=== PATIENT | female | born 1975 | race Caucasian/White ===

== ENCOUNTER → 2016-07-10 | Outpatient (CLI) | payer BC ==
--- NOTE | 2016-07-10 16:21 | MR ---
EXAMINATION TYPE: MR brain wo/w con DATE OF EXAM: 07/10/2016 3:42 PM COMPARISON: Prior MRI brain July 10, 2015. HISTORY: Follow up ms . Symptoms of left-sided weakness per patient questionnaire. TECHNIQUE: Multiplanar, multisequence images of the brain and brainstem is performed without and with IV contras t, utilizing 10 mL intravenous MultiHance gadolinium contrast is administered intravenously. Demyeli nating disease protocol with additional Sagittal Flair sequence performed. FINDINGS: T2 Lesions Present : Yes Approximate Number of Lesions: Too numerous to count with confluent appearance redemonstrated. Locations Identified : Most prominent periventricular white juxtacortical lesions are redemonstrated, lesion craniocervical junction is redemonstrated. Size of Reference Lesion(s): 1. 0.5 cm x 0.3 cm x 0.6 cm on axial image 2 and sagittal image 16 slightly less well visualized but felt stable in size extending just left of midline at craniocervical junction. 2 0.9 cm x 0.5 cm x 0.6 cm on axial image 20 and sagittal image 9 left frontal deep white matter le mian felt stable. Enhancing Lesion(s) Present: No T1 Hypointense Lesion(s) Present: Yes Change from Prior: Stable Diffusion weighted images demonstrate no evidence of a recent infarct or other diffusion abnormality. There is no worrisome extra-axial fluid collection. The ventricular system and cisternal spaces ar e normal in size and appearance. The brain volume is age appropriate. Midline structures demonstrate normal morphology. Some generalized atrophy or thinning of the corpus callosum is redemonstrated on sagittal images. The craniocervical junction appears within normal sands its. Post contrast images demonstrate no abnormal enhancement. The dural venous sinuses appear paten t. There is stable 1 cm mucous retention cyst or polyp in inferior left maxillary sinus noted. The v isualized sinuses are otherwise clear and the globes are intact. IMPRESSION: Advanced white matter changes presumed on basis of patient's known multiple sclerosis. No new or enhancing lesions are clearly seen.
== END | disposition home or self-care (01) ==
LOC: RADMRIMAIN 14:37
PROVIDERS: ATTEND Nurse Practitioner Acute Care
DX: G35 Multiple sclerosis (principal); M54.2 Cervicalgia
CPT/HCPCS: 70553; A9577

== ENCOUNTER → 2016-07-19 | Outpatient (CLI) | payer BC ==
--- NOTE | 2016-07-19 12:40 | MR ---
EXAMINATION TYPE: MR cervical spine wo con DATE OF EXAM ORDERED: 07/19/2016 12:27 PM HISTORY: M54.2 Cervicalgia. TECHNOLOGIST HISTORY AT TIME OF EXAM: Cervicalgia, MS COMPARISON: Previous study dated 11/19/2013. TECHNIQUE: Multiplanar, multiecho imaging of the cervical spine was obtained without contrast on a 1 .5 rosalino magnet. FINDINGS: Paraspinal soft tissues are unremarkable. Vertebral body height and alignment are maintained. There is a questionable lesion at the cervical medullary junction noted previously measured 10.6 mm. Today this measures 9.5 mm. The craniocervical junction is otherwise normal. No other cord lesions ar e seen. At C2-C3, no abnormalities demonstrated. At C3-C4, there is a mild, diffuse disc displacement. Intervertebral foramina are well maintained. Th e facet and uncovertebral joints are normal. At C4-C5, the intervertebral foramina are unremarkable. There is no significant compressive discopath y. The facet and uncovertebral joints are normal. At C5-C6, there is a broad-based disc displacement mildly deforming the thecal sac without cord conta ct. The intervertebral foramina are widely maintained. The facet and uncovertebral joints are normal. At C6-7 and C7-T1, no abnormality is demonstrated. IMPRESSION: 1. QUESTIONABLE LESION AT THE CERVICAL MEDULLARY JUNCTION UNCHANGED FROM PREVIOUS. 2. MINIMAL DEGENERATIVE DISC DISEASE.
== END | disposition home or self-care (01) ==
LOC: RADMRIMAIN 11:48
PROVIDERS: ATTEND Nurse Practitioner Acute Care
DX: G35 Multiple sclerosis (principal); M50.222 Other cervical disc displacement at C5-C6 level; M50.31 Other cervical disc degeneration, high cervical region
CPT/HCPCS: 72141

== ENCOUNTER → 2017-07-10 | Outpatient (CLI) | payer BC ==
--- NOTE | 2017-07-10 15:52 | MR ---
EXAMINATION TYPE: MR brain wo/w con DATE OF EXAM: 07/10/2017 COMPARISON: 07/10/2016 HISTORY: MS follow-up TECHNIQUE: Multiplanar, multisequence images of the brain and brainstem is performed without and with IV contras t, utilizing 5 mL intravenous Gadavist . FINDINGS: Diffusion weighted images demonstrate no evidence of a recent infarct or other diffusion ab normality. There is no extra-axial fluid collection or significant white matter signal abnormality. The ventricular system and cisternal spaces are normal in size and appearance. The brain volume is age appropriate. Midline structures demonstrate normal morphology. Post contrast images demonstrate no abnormal enh ancement. The dural venous sinuses appear patent. Changes of chronic sinusitis noted. There is thinning of the corpus callosum. Cerebellar tonsils low-lying in position. WHITE MATTER: T2 Lesions Present : Yes Approximate Number of Lesions: Too numerous to count with confluent appearance redemonstrated. Locati ons Identified : Most prominent periventricular white juxtacortical lesions are redemonstrated, lesio n craniocervical junction is redemonstrated. 0.6 cm area of involvement of the right cerebral peduncl e stable. Size of Reference Lesion(s): 1. 0.5 cm x 0.3 cm x 0.6 cm on stable extending just left of midline at craniocervical junction. 2 0.9 cm x 0.5 cm x 0.6 cm on axial image 20 and sagittal image 9 left frontal deep white matter le mian felt stable. Enhancing Lesion(s) Present: No T1 Hypointense Lesion(s) Present: Yes Change from Prior: Stable IMPRESSION:
== END | disposition home or self-care (01) ==
LOC: RADMRIMAIN 14:52
PROVIDERS: ATTEND Nurse Practitioner Acute Care
DX: G35 Multiple sclerosis (principal)
CPT/HCPCS: 70553; A9581

== ENCOUNTER 2019-09-09 14:58 | Observation (INO) | payer BC ==
--- NOTE | 2019-09-09 16:32 | CT ---
EXAMINATION TYPE: CT brain wo con DATE OF EXAM: 09/09/2019 COMPARISON: MRI brain 10/11/2010 INDICATION: Weakness, MS exacerbation. DLP: 1127.4 mGycm, Automated exposure control for dose reduction was used. CONTRAST: None CT of the brain is performed utilizing 3 mm thick sections through the posterior fossa and 3 mm thick sections through the remaining calvarium. Study is performed within 24 hours of arrival to the hosp ital. No abnormal hyperdensity is present to suggest an acute intracranial hemorrhage. No mass lesion is evident. There is a hypodensity within the inferior right frontal lobe. Series 201 image is 17-19. There is pe riventricular white matter hypodensity likely on the basis of chronic white matter ischemic changes. Ventricles and sulci are mildly prominent for the patient age. Paranasal sinuses and mastoid air cells within the [id number] are clear. IMPRESSIONS: 1. Periventricular white matter changes including the inferior right frontal lobe appear to be pres ent on the 2010 MRI exam. No acute intracranial process is identified. If closer evaluation is requir ed, MRI with contrast could be performed.
--- NOTE | 2019-09-09 16:32 | XR ---
EXAMINATION TYPE: XR chest 2V DATE OF EXAM: 09/09/2019 COMPARISON: NONE HISTORY: Weakness. TECHNIQUE: Frontal and lateral views of the chest are obtained. FINDINGS: Lateral view is slightly suboptimal as there is artifact overlying the posterior aspect of the lungs. Frontal view suboptimal as patient is rotated or turned to the left. There is no suspicio us focal air space opacity, pleural effusion, or pneumothorax seen. The cardiac silhouette size is w ithin normal limits. The osseous structures are intact. IMPRESSION: Suboptimal study without acute process identified.
[2019-09-09 17:01] LABS: Partial Thromboplastin Time 30.5 sec (22.0-30.0); Prothrombin Time 10.3 sec (9.0-12.0)
[2019-09-09 17:09] LABS: Basophils % (A) 0 %; Eosinophils # (A) 0.1 k/uL (0-0.7); Eosinophils % (A) 1 %; HCT 38.1 % (34.0-46.0); HGB 13.2 gm/dL (11.4-16.0); Lymphocytes % (A) 6 %; MCH 29.4 pg (25.0-35.0); MCHC 34.6 g/dL (31.0-37.0); MCV 85.1 fL (80.0-100.0); Mean Platelet Volume 9.8; Monocytes # (A) 0.5 k/uL (0-1.0); Monocytes % (A) 3 %; Neutrophils # (A) 15.1 k/uL (1.3-7.7); Neutrophils % (A) 90 %; Platelet Count 212 k/uL (150-450); RBC 4.48 m/uL (3.80-5.40); RDW 13.2 % (11.5-15.5); WBC 16.8 k/uL (3.8-10.6)
[2019-09-09 17:31] LABS: ALT 21 U/L (4-34); AST 33 U/L (14-36); African American GFR (CKD) >90 (>60 ml/min/1.73 sqM); Albumin 4.2 g/dL (3.5-5.0); Alkaline Phosphatase 45 U/L (38-126); Anion Gap 10 mmol/L; Blood Urea Nitrogen 13 mg/dL (7-17); Carbon Dioxide 21 mmol/L (22-30); Chloride 105 mmol/L (98-107); Creatine Kinase 772 U/L (30-135); Glucose 128 mg/dL (74-99); Non-African American GFR(CKD) >90 (>60 ml/min/1.73 sqM); Potassium 3.8 mmol/L (3.5-5.1); Sodium 136 mmol/L (137-145); Total Bilirubin 0.5 mg/dL (0.2-1.3); Total Protein 6.9 g/dL (6.3-8.2)
--- NOTE | 2019-09-09 18:14 | ED ---
Weakness HPI - General Chief complaint: Weakness Stated complaint: Weakness Time Seen by Provider: 09/09/19 15:05 Source: patient, EMS Mode of arrival: EMS Limitations: physical limitation - History of Present Illness Initial comments: Patient is a 43 year old female past history of MS who presents to the emergency department with generalized weakness. She sees Dr. Griffiths in office. States that she last had infusions in April for high-dose steroids. Patient is a very flat affect and has delayed responses to questioning however is not confused. States that since last night she has had generalized weakness with inability to get up from a seated position. Normally is able to ambulate with a walker. Patient has ecchymosis to the left lower extremity. Admits that she lost her balance however denies completely falling to the ground. No recent blunt head trauma. States that she is generally weak however on physical exam it is notable that the patient has left upper extreme weakness. States that her right side is normally her affected side. She denies any visual changes. No fevers or chills. Denies any neck pain. No chest pain or shortness of breath. Denies any abdominal pain or changes in her bowel or bladder habits. She takes Tecfidera at home. Denies concern for . There are no other alleviating, precipitating or modifying factors - Related Data Home Medications Medication Instructions Recorded Confirmed Baclofen [Lioresal] 10 mg PO TID 09/09/19 09/09/19 Dimethyl Fumarate [Tecfidera] 240 mg PO BID@0800,2000 09/09/19 09/09/19 Previous Rx's Medication Instructions Recorded predniSONE 10 mg PO DIRECTED #30 tab 09/10/19 Allergies Allergy/AdvReac Type Severity Reaction Status Date / Time No Known Allergies Allergy Verified 09/09/19 19:17 Review of Systems ROS Statement: Those systems with pertinent positive or pertinent negative responses have been documented in the HPI. ROS Other: All systems not noted in ROS Statement are negative. Past Medical History Past Medical History: Musculoskeletal Disorder Additional Past Medical History / Comment(s): MS. History of Any Multi-Drug Resistant Organisms: None Reported Past Surgical History: No Surgical Hx Reported Smoking Status: Never smoker Past Alcohol Use History: None Reported Past Drug Use History: None Reported - Past Family History Father Family Medical History: Cancer Additional Family Medical History / Comment(s): Dad from colon [place] General Exam Limitations: physical limitation General appearance: alert, cachectic, other (fatigued) Head exam: Present: atraumatic, normocephalic, normal inspection Eye exam: Present: normal appearance, PERRL, EOMI. Absent: scleral icterus, conjunctival injection, periorbital swelling ENT exam: Present: mucous membranes dry Neck exam: Present: normal inspection. Absent: tenderness, meningismus, lymphadenopathy Respiratory exam: Present: normal lung sounds bilaterally. Absent: respiratory distress, wheezes, rales, rhonchi, stridor Cardiovascular Exam: Present: regular rate, normal rhythm, normal heart sounds. Absent: systolic murmur, diastolic murmur, rubs, gallop, clicks GI/Abdominal exam: Present: soft, normal bowel sounds. Absent: distended, tenderness, guarding, rebound, rigid Extremities exam: Present: other (weakness LUE 0/5 upon presentation. LLE, RUE, RLE 4/5 strength. Intact sensation. Compartments are soft. No dysarthria. No expressive aphasia) Course Vital Signs 09/09/19 09/09/19 09/09/19 15:01 16:40 19:07 Temperature 98.5 F Pulse Rate 97 101 H 87 Respiratory 18 16 16 Rate Blood Pressure 129/75 129/76 120/66 O2 Sat by Pulse 98 98 96 Oximetry 09/09/19 20:27 Temperature 98.4 F Pulse Rate 88 Respiratory 16 Rate Blood Pressure 121/71 O2 Sat by Pulse 96 Oximetry EKG Findings - EKG Comments: EKG Findings:: EKG demonstrates a normal sinus rhythm with a ventricular rate of 96.. 152. QRS 82. QTC of 459. No acute ST segment elevations or depressions concerning for ischemic changes Medical Decision Making - Medical Decision Making Upon arrival the patient was placed into room 2. A thorough history and physical exam is performed. Patient has complete weakness in her left upper extremity with muscle strength of 0 out of 5. Left lower extremity is 4 out of 5 and right upper and lower extremity are 5 out of 5. Peripheral IV is est ablished. Laboratory studies were conducted. White blood count elevated at 16.8. CK 772. Urinalysis shows moderate bacteria with 4+ ketones. The patient was started on 75 mL of normal saline per hour. She is reevaluated and has improvement in the weakness in her left upper extremity. Family friend does present to bedside and states that he was on the called EMS as he found her on the ground. Patient states she slid onto the ground and denies a fall or head trauma. CT the patient's brain was performed as well as a chest x-ray. Chest x-ray demonstrates no acute identifiable intrathoracic process. CT of the brain demonstrates. Ventricular white matter changes including the inferior right frontal lobe which appear to be present on the 2010 MRI scan. I am concerned for possible urinary tract infection with worsening MS symptoms. Because of this blood cultures and urine cultures were ordered. Patient is given a dose of Rocephin. I called and discuss case with Dr. Sheppard who requested 1 g of solumedrol. I recommended hospital admission for which the patient did agree. Patient was then seen in the emergency department by Dr. Canela then transported to the floor in stable condition - Lab Data Result diagrams: 09/10/19 05:51 09/10/19 05:51 Lab Results 09/09/19 09/09/19 09/09/19 Range/Units 16:35 16:35 16:35 WBC 16.8 H (3.8-10.6) k/uL RBC 4.48 (3.80-5.40) m/uL Hgb 13.2 (11.4-16.0) gm/dL Hct 38.1 (34.0-46.0) % MCV 85.1 (80.0-100.0) fL MCH 29.4 (25.0-35.0) pg MCHC 34.6 (31.0-37.0) g/dL RDW 13.2 (11.5-15.5) % Plt Count 212 (150-450) k/uL Neutrophils % 90 % Lymphocytes % 6 % Monocytes % 3 % Eosinophils % 1 % Basophils % 0 % Neutrophils # 15.1 H (1.3-7.7) k/uL Lymphocytes # 1.0 (1.0-4.8) k/uL Monocytes # 0.5 (0-1.0) k/uL Eosinophils # 0.1 (0-0.7) k/uL Basophils # 0.0 (0-0.2) k/uL PT 10.3 (9.0-12.0) sec INR 1.0 (<1.2) APTT 30.5 H (22.0-30.0) sec Sodium (137-145) mmol/L Potassium (3.5-5.1) mmol/L Chloride (98-107) mmol/L Carbon Dioxide (22-30) mmol/L Anion Gap mmol/L BUN (7-17) mg/dL Creatinine (0.52-1.04) mg/dL Est GFR (CKD-EPI)AfAm (>60 ml/min/1.73 sqM) Est GFR (CKD-EPI)NonAf (>60 ml/min/1.73 sqM) Glucose (74-99) mg/dL Plasma Lactic Acid Porfirio 1.3 (0.7-2.0) mmol/L Calcium (8.4-10.2) mg/dL Total Bilirubin (0.2-1.3) mg/dL AST (14-36) U/L ALT (4-34) U/L Alkaline Phosphatase (38-126) U/L Creatine Kinase (30-135) U/L Troponin I (0.000-0.034) ng/mL Total Protein (6.3-8.2) g/dL Albumin (3.5-5.0) g/dL TSH (0.465-4.680) mIU/L Urine Color Urine Appearance (Clear) Urine pH (5.0-8.0) Ur Specific [place] (1.001-1.035) Urine Protein (Negative) Urine Glucose (UA) (Negative) Urine Ketones (Negative) Urine Blood (Negative) Urine Nitrite (Negative) Urine Bilirubin (Negative) Urine Urobilinogen (<2.0) mg/dL Ur Leukocyte Esterase (Negative) Urine RBC (0-5) /hpf Urine WBC (0-5) /hpf Ur Squamous Epith Cells (0-4) /hpf Urine Bacteria (None) /hpf Hyaline Casts (0-2) /lpf Urine Mucus (None) /hpf 09/09/19 09/09/19 09/09/19 Range/Units 17:08 17:08 17:48 WBC (3.8-10.6) k/uL RBC (3.80-5.40) m/uL Hgb (11.4-16.0) gm/dL Hct (34.0-46.0) % MCV (80.0-100.0) fL MCH (25.0-35.0) pg MCHC (31.0-37.0) g/dL RDW (11.5-15.5) % Plt Count (150-450) k/uL Neutrophils % % Lymphocytes % % Monocytes % % Eosinophils % % Basophils % % Neutrophils # (1.3-7.7) k/uL Lymphocytes # (1.0-4.8) k/uL Monocytes # (0-1.0) k/uL Eosinophils # (0-0.7) k/uL Basophils # (0-0.2) k/uL PT (9.0-12.0) sec INR (<1.2) APTT (22.0-30.0) sec Sodium 136 L (137-145) mmol/L Potassium 3.8 (3.5-5.1) mmol/L Chloride 105 (98-107) mmol/L Carbon Dioxide 21 L (22-30) mmol/L Anion Gap 10 mmol/L BUN 13 (7-17) mg/dL Creatinine 0.50 L (0.52-1.04) mg/dL Est GFR (CKD-EPI)AfAm >90 (>60 ml/min/1.73 sqM) Est GFR (CKD-EPI)NonAf >90 (>60 ml/min/1.73 sqM) Glucose 128 H (74-99) mg/dL Plasma Lactic Acid Porfirio (0.7-2.0) mmol/L Calcium 9.0 (8.4-10.2) mg/dL Total Bilirubin 0.5 (0.2-1.3) mg/dL AST 33 (14-36) U/L ALT 21 (4-34) U/L Alkaline Phosphatase 45 (38-126) U/L Creatine Kinase 772 H (30-135) U/L Troponin I <0.012 (0.000-0.034) ng/mL Total Protein 6.9 (6.3-8.2) g/dL Albumin 4.2 (3.5-5.0) g/dL TSH 0.848 (0.465-4.680) mIU/L Urine Color Urine Appearance (Clear) Urine pH (5.0-8.0) Ur Specific [place] (1.001-1.035) Urine Protein (Negative) Urine Glucose (UA) (Negative) Urine Ketones (Negative) Urine Blood (Negative) Urine Nitrite (Negative) Urine Bilirubin (Negative) Urine Urobilinogen (<2.0) mg/dL Ur Leukocyte Esterase (Negative) Urine RBC (0-5) /hpf Urine WBC (0-5) /hpf Ur Squamous Epith Cells (0-4) /hpf Urine Bacteria (None) /hpf Hyaline Casts (0-2) /lpf Urine Mucus (None) /hpf 09/09/19 Range/Units 18:00 WBC (3.8-10.6) k/uL RBC (3.80-5.40) m/uL Hgb (11.4-16.0) gm/dL Hct (34.0-46.0) % MCV (80.0-100.0) fL MCH (25.0-35.0) pg MCHC (31.0-37.0) g/dL RDW (11.5-15.5) % Plt Count (150-450) k/uL Neutrophils % % Lymphocytes % % Monocytes % % Eosinophils % % Basophils % % Neutrophils # (1.3-7.7) k/uL Lymphocytes # (1.0-4.8) k/uL Monocytes # (0-1.0) k/uL Eosinophils # (0-0.7) k/uL Basophils # (0-0.2) k/uL PT (9.0-12.0) sec INR (<1.2) APTT (22.0-30.0) sec Sodium (137-145) mmol/L Potassium (3.5-5.1) mmol/L Chloride (98-107) mmol/L Carbon Dioxide (22-30) mmol/L Anion Gap mmol/L BUN (7-17) mg/dL Creatinine (0.52-1.04) mg/dL Est GFR (CKD-EPI)AfAm (>60 ml/min/1.73 sqM) Est GFR (CKD-EPI)NonAf (>60 ml/min/1.73 sqM) Glucose (74-99) mg/dL Plasma Lactic Acid [place] (0.7-2.0) mmol/L Calcium (8.4-10.2) mg/dL Total Bilirubin (0.2-1.3) mg/dL AST (14-36) U/L ALT (4-34) U/L Alkaline Phosphatase (38-126) U/L Creatine Kinase (30-135) U/L Troponin I (0.000-0.034) ng/mL Total Protein (6.3-8.2) g/dL Albumin (3.5-5.0) g/dL TSH (0.465-4.680) mIU/L Urine Color Yellow Urine Appearance Clear (Clear) Urine pH 6.0 (5.0-8.0) Ur Specific [place] 1.029 (1.001-1.035) Urine Protein 1+ H (Negative) Urine Glucose (UA) Negative (Negative) Urine Ketones 4+ H (Negative) Urine Blood Negative (Negative) Urine Nitrite Negative (Negative) Urine Bilirubin Negative (Negative) Urine Urobilinogen <2.0 (<2.0) mg/dL Ur Leukocyte Esterase Negative (Negative) Urine RBC 2 (0-5) /hpf Urine WBC 2 (0-5) /hpf Ur Squamous Epith Cells 7 H (0-4) /hpf Urine Bacteria Moderate H (None) /hpf Hyaline Casts 1 (0-2) /lpf Urine Mucus Few H (None) /hpf Disposition Clinical Impression: Multiple sclerosis, Generalized weakness, Left arm weakness Disposition: ADMITTED IP TO THIS [facility] Condition: Stable Is patient prescribed a controlled substance at d/c from ED?: No Decision to Admit Reason: Admit from EC Decision Date: 09/09/19 Decision Time: 18:17
[2019-09-09 18:15] LABS: Appearance,Urine Clear (Clear); Bacteria,Urine Moderate /hpf; Bilirubin,Urine Negative (Negative); Blood,Urine Negative (Negative); Color,Urine Yellow; Glucose,Urine (UA) Negative (Negative); Hyaline Casts,Urine 1 /lpf (0-2); Ketones,Urine 4+ (Negative); Leukocyte Esterase,Urine Negative (Negative); Mucus,Urine Few /hpf; Nitrite,Urine Negative (Negative); Protein,Urine 1+ (Negative); RBC,Urine 2 /hpf (0-5); Specific Gravity,Urine 1.029 (1.001-1.035); Squamous Epithelial Cell,Urine 7 /hpf (0-4); Urobilinogen,Urine <2.0 mg/dL (<2.0); WBC,Urine 2 /hpf (0-5)
[2019-09-09] MEDS ORDERED: NALOXONE 0.4 MG/ML 1 ML VIAL IV PRN (18:17)
[2019-09-09] MEDS ORDERED: cefTRIAXone IN SWFI 1,000 MG/10 ML SYRINGE IVP STA (18:27)
--- NOTE | 2019-09-09 19:03 | P.HPIM ---
History of Present Illness 51-year-old pleasant female with a history of relapsing remitting multiple sclerosis grossly years ago without any recent relapse came in with complaints of increasing weakness has been going on for about a day predominantly in the l eft side of the patient's bad site is on the right side patient initially went presented to ER her stent on the left side is around 1-2/5 presently improved to 4/5 the left lower extremity was 4/5 in presently 4/5. Patient denied any other focal weaknesses denied any tingling or numbness denied any headache denied any visual problems. Denied any pain anywhere. Patient denied any bladder spasms or urinary incontinence or back spasms at this time. Patient denied any dysuria or increased urinary frequency denied any fever. Patient given his bit abnormal but but this is a some dry bacteria patient does have some leukocytosis reactive seconded to multiple sclerosis. Review of Systems REVIEW OF SYSTEMS: CONSTITUTIONAL: No fever, no malaise, no fatigue. HEENT: No recent visual problems or hearing problems. Denied any sore throat. CARDIOVASCULAR: No chest pain, orthopnea, PND, no palpitations, no syncope. PULMONARY: No shortness of breath, no cough, no hemoptysis. GASTROINTESTINAL: No diarrhea, no nausea, no vomiting, no abdominal pain. NEUROLOGICAL: As mentioned in HPI HEMATOLOGICAL: Denies any bleeding or petechiae. GENITOURINARY: Denies any burning micturition, frequency, or urgency. MUSCULOSKELETAL/RHEUMATOLOGICAL: Denies any joint pain, swelling, or any muscle pain. ENDOCRINE: Denies any polyuria or polydipsia. The rest of the 14-point review of systems is negative. Past Medical History Past Medical History: Musculoskeletal Disorder Additional Past Medical History / Comment(s): MS. History of Any Multi-Drug Resistant Organisms: None Reported Past Surgical History: No Surgical Hx Reported Smoking Status: Never smoker Past Alcohol Use History: None Reported Past Drug Use History: None Reported Medications and Allergies Allergies Allergy/AdvReac Type Severity Reaction Status Date / Time No Known Allergies Allergy Verified 09/09/19 15:08 Physical Exam Vitals: Vital Signs Temp Pulse Resp BP Pulse Ox 09/09/19 16:40 101 H 16 129/76 98 09/09/19 15:01 98.5 F 97 18 129/75 98 Intake and Output 09/09/19 09/09/19 09/09/19 06:59 14:59 22:59 Other: Weight 59.874 kg PHYSICAL EXAMINATION: GENERAL: The patient is alert and oriented x3, not in any acute distress. Well developed, well nourished. HEENT: Pupils are round and equally reacting to light. EOMI. No scleral icterus. No conjunctival pallor. Normocephalic, atraumatic. No pharyngeal erythema. No thyromegaly. CARDIOVASCULAR: S1 and S2 present. No murmurs, rubs, or gallops. PULMONARY: Chest is clear to auscultation, no wheezing or crackles. ABDOMEN: Soft, nontender, nondistended, normoactive bowel sounds. No palpable organomegaly. MUSCULOSKELETAL: No joint swelling or deformity. EXTREMITIES: No cyanosis, clubbing, or pedal edema. NEUROLOGICAL: Focal weakness as mentioned above SKIN: No rashes. Results CBC & Chem 7: 09/09/19 16:35 09/09/19 17:08 Labs: Abnormal Lab Results - Last 24 Hours (Table) 09/09/19 09/09/19 09/09/19 Range/Units 16:35 16:35 17:08 WBC 16.8 H (3.8-10.6) k/uL Neutrophils # 15.1 H (1.3-7.7) k/uL APTT 30.5 H (22.0-30.0) sec Sodium 136 L (137-145) mmol/L Carbon Dioxide 21 L (22-30) mmol/L Creatinine 0.50 L (0.52-1.04) mg/dL Glucose 128 H (74-99) mg/dL Creatine Kinase 772 H (30-135) U/L Urine Protein (Negative) Urine Ketones (Negative) Ur Squamous Epith Cells (0-4) /hpf Urine Bacteria (None) /hpf Urine Mucus (None) /hpf 09/09/19 Range/Units 18:00 WBC (3.8-10.6) k/uL Neutrophils # (1.3-7.7) k/uL APTT (22.0-30.0) sec Sodium (137-145) mmol/L Carbon Dioxide (22-30) mmol/L Creatinine (0.52-1.04) mg/dL Glucose (74-99) mg/dL Creatine Kinase (30-135) U/L Urine Protein 1+ H (Negative) Urine Ketones 4+ H (Negative) Ur Squamous Epith Cells 7 H (0-4) /hpf Urine Bacteria Moderate H (None) /hpf Urine Mucus Few H (None) /hpf Assessment and Plan Plan: 1 possible multiple sclerosis exacerbation patient will be on GI prophylaxis along with systemic steroids and neurology will evaluate the patient patient will be resumed on her home medications of baclofen and I've Hydrofiber 8. -Asymptomatic bacteriuria without any evidence of UTI will not require any antibiotics -Tachycardia sinus tachycardia etiology is not clear but it's only mild sinus tachycardia patient will be continued on IV fluids and monitor -Leukocytosis reactive without any evidence of infection at this time.
[2019-09-09] MEDS ORDERED: methylPREDNISolone SOD SUCC 1,000 MG in SODIUM CHLORIDE 0.9% 250 ML IVPB STA (19:19)
[2019-09-09] MEDS ORDERED: ONDANSETRON 4 MG/2 ML VIAL IVP STA (19:43)
[2019-09-09] MEDS: SODIUM CHLORIDE 0.9% 1,000 ML IV SCH ×2 (19:57→22:36)
[2019-09-09] MEDS ORDERED: ONDANSETRON 4 MG/2 ML VIAL IVP PRN (21:04)
[2019-09-09] MEDS: BACLOFEN 10 MG TAB PO SCH (22:36)
[2019-09-09] MEDS: FAMOTIDINE 20 MG TAB PO SCH (22:36)
[2019-09-09] MEDS: (Dimethyl Fumarate [Tecfidera] 240 MG) PO SCH (22:51)
[2019-09-09] MEDS: ACETAMINOPHEN TAB 325 MG TAB PO PRN (23:00)
[2019-09-10] MEDS: ACETAMINOPHEN TAB 325 MG TAB PO PRN ×2 (05:14→20:18)
[2019-09-10] MEDS: SODIUM CHLORIDE 0.9% 1,000 ML IV SCH ×2 (06:23→12:58)
[2019-09-10 06:40] LABS: Basophils % (A) 0 %; Eosinophils # (A) 0.1 k/uL (0-0.7); Eosinophils % (A) 1 %; HCT 37.8 % (34.0-46.0); HGB 12.8 gm/dL (11.4-16.0); Lymphocytes # (A) 0.8 k/uL (1.0-4.8); Lymphocytes % (A) 6 %; MCH 29.1 pg (25.0-35.0); MCHC 33.7 g/dL (31.0-37.0); MCV 86.3 fL (80.0-100.0); Mean Platelet Volume 9.8; Monocytes # (A) 0.2 k/uL (0-1.0); Monocytes % (A) 1 %; Neutrophils % (A) 92 %; Platelet Count 214 k/uL (150-450); RBC 4.38 m/uL (3.80-5.40); RDW 13.3 % (11.5-15.5); WBC 13.1 k/uL (3.8-10.6)
[2019-09-10 07:04] LABS: African American GFR (CKD) >90 (>60 ml/min/1.73 sqM); Anion Gap 9 mmol/L; Blood Urea Nitrogen 9 mg/dL (7-17); Calcium 8.9 mg/dL (8.4-10.2); Carbon Dioxide 23 mmol/L (22-30); Chloride 105 mmol/L (98-107); Glucose 166 mg/dL (74-99); Non-African American GFR(CKD) >90 (>60 ml/min/1.73 sqM); Potassium 3.8 mmol/L (3.5-5.1); Sodium 137 mmol/L (137-145)
[2019-09-10] MEDS: ENOXAPARIN 40 MG/0.4 ML SYRINGE SQ SCH (09:28)
[2019-09-10] MEDS: BACLOFEN 10 MG TAB PO SCH ×3 (09:28→23:28)
[2019-09-10] MEDS: (Dimethyl Fumarate [Tecfidera] 240 MG) PO SCH ×2 (09:28→20:20)
[2019-09-10] MEDS: FAMOTIDINE 20 MG TAB PO SCH ×2 (09:29→20:18)
[2019-09-10] MEDS: methylPREDNISolone SOD SUCC 1,000 MG in SODIUM CHLORIDE 0.9% 250 ML IVPB SCH (12:25)
--- NOTE | 2019-09-10 16:22 | P.PN ---
Subjective Progress Note Date: 09/10/19 Principal diagnosis: 51-year-old pleasant female with a history of relapsing remitting multiple sclerosis grossly years ago without any recent relapse came in with complaints of increasing weakness has been going on for about a day predominantly in the left side of the patient's bad site is on the right side patient initially went presented to ER her stent on the left side is around 1-2/5 presently improved to 4/5 the left lower extremity was 4/5 in presently 4/5. Patient denied any other focal weaknesses denied any tingling or numbness denied any headache denied any visual problems. Denied any pain anywhere. Patient denied any bladder spasms or urinary incontinence or back spasms at this time. Patient denied any dysuria or increased urinary frequency denied any fever. Patient given his bit abnormal but but this is a some dry bacteria patient does have some leukocytosis reactive seconded to multiple sclerosis. 09/10/2019 Patient is seen and evaluated and follow-up and continues to have some weakness and spasms noted of the right lower extremity. Patient states that she feels somewhat better today. Patient did receive a gram of methylprednisolone IV and will continue with the daily dose 3. Patient is to receive another dose this morning and then again tomorrow. Discussed the current treatment plan with her neurologist nurse practitioner Lauren from Dr. Griffiths's office and due to the office being closed over the weekend they are in agreement with this treatment plan. Patient will also continue on a prednisone taper in the outpatient setting once discharged. Patient is scheduled to receive an MRI of the brain on Friday and Dr. Griffiths's office and will follow-up with them at the end of the week for results. Currently no report of chest pain, shortness of breath, or palpitations. Patient is afebrile. No reports of nausea or vomiting and patient is tolerating diet. Objective - Vital Signs Vital signs: Vital Signs Temp 98.2 F 09/10/19 12:14 Pulse 80 09/10/19 12:14 Resp 20 09/10/19 12:14 BP 104/69 09/10/19 12:14 Pulse Ox 94 L 09/10/19 12:14 Intake & Output 09/09/19 09/10/19 09/10/19 18:59 06:59 18:59 Intake Total 1440 1520 Balance 1440 1520 Weight 59.874 kg 59.874 kg Intake: Intake, IV Titration 1000 800 Amount Sodium Chloride 0.9% 1, 1000 800 000 ml @ 100 mls/hr IV . Q10H [facility] Rx#:[id number] Oral 440 720 Other: Voiding Method Bedpan Toilet # Voids 4 3 - Exam GENERAL: The patient is alert and oriented x3, not in any acute distress. Well developed, well nourished. HEENT: Pupils are round and equally reacting to light. EOMI. No scleral icterus. No conjunctival pallor. Normocephalic, atraumatic. No pharyngeal erythema. No th yromegaly. CARDIOVASCULAR: S1 and S2 present. No murmurs, rubs, or gallops. PULMONARY: Chest is clear to auscultation, no wheezing or crackles. ABDOMEN: Soft, nontender, nondistended, normoactive bowel sounds. No palpable organomegaly. MUSCULOSKELETAL: No joint swelling or deformity. EXTREMITIES: No cyanosis, clubbing, or pedal edema. NEUROLOGICAL: Focal weakness as mentioned above SKIN: No rashes. - Labs CBC & Chem 7: 09/10/19 05:51 09/10/19 05:51 Labs: Abnormal Lab Results - Last 24 Hours (Table) 09/09/19 09/09/19 09/09/19 Range/Units 16:35 16:35 17:08 WBC 16.8 H (3.8-10.6) k/uL Neutrophils # 15.1 H (1.3-7.7) k/uL Lymphocytes # (1.0-4.8) k/uL APTT 30.5 H (22.0-30.0) sec Sodium 136 L (137-145) mmol/L Carbon Dioxide 21 L (22-30) mmol/L Creatinine 0.50 L (0.52-1.04) mg/dL Glucose 128 H (74-99) mg/dL Creatine Kinase 772 H (30-135) U/L Urine Protein (Negative) Urine Ketones (Negative) Ur Squamous Epith Cells (0-4) /hpf Urine Bacteria (None) /hpf Urine Mucus (None) /hpf 09/09/19 09/10/19 09/10/19 Range/Units 18:00 05:51 05:51 WBC 13.1 H (3.8-10.6) k/uL Neutrophils # 12.0 H (1.3-7.7) k/uL Lymphocytes # 0.8 L (1.0-4.8) k/uL APTT (22.0-30.0) sec Sodium (137-145) mmol/L Carbon Dioxide (22-30) mmol/L Creatinine 0.50 L (0.52-1.04) mg/dL Glucose 166 H (74-99) mg/dL Creatine Kinase (30-135) U/L Urine Protein 1+ H (Negative) Urine Ketones 4+ H (Negative) Ur Squamous Epith Cells 7 H (0-4) /hpf Urine Bacteria Moderate H (None) /hpf Urine Mucus Few H (None) /hpf Microbiology - Last 24 Hours (Table) 09/09/19 18:00 Urine Culture - Preliminary Urine,Voided Assessment and Plan Assessment: -possible multiple sclerosis exacerbation patient will be on GI prophylaxis along with systemic steroids and neurology will evaluate the patient patient will be resumed on her home medications, to continue 2 additional doses of m ethylprednisone IV piggyback per Dr. Griffiths's [employer] SERVICE ASSOCIATE her primary and then may be discharged on a prednisone taper and will have her follow-up in the clinic this week. She is scheduled to have a MRI of the brain on Friday in Dr. Griffiths's office -Asymptomatic bacteriuria without any evidence of UTI will not require any antibiotics -Tachycardia sinus tachycardia etiology is not clear, improved -Leukocytosis reactive without any evidence of infection at this time. Plan: Patient to receive another dose 1 g methylprednisone IV piggyback today and tomorrow morning and then will likely be discharged on a prednisone taper and will follow up with neurology clinic this week. Patient sees Dr. Griffiths's CUSTOMER SERVICE ASSOCIATE Lauren and the case was discussed in detail with them. Further recommendations to follow. Patient will be discharged in the morning.
--- NOTE | 2019-09-10 20:13 | P.CNNES ---
History of Present Illness Consult date: 09/10/19 Requesting physician: Alessandra Gomez Reason for Consult: Suspected MS exacerbation History of Present Illness: Patient is a 43-year-old female, who has been diagnosed with relapsing remitting MS since age 31. Patient always had right-sided weaker than the left. Patient came to the hospital because she noticed for the last couple days, she was noticing increased weakness of the left side which is her better side. Patient follows up with nurse practitioner at Dr. Bess office. Patient has MS since age 31. She was initially placed on Rebif, but then was switched to Gilenya. Patient has been on Tecfidera for a long time. Patient has not tried any other infusions. Patient states her last relapse was in Apr, when she was given 5 day treatment with steroids followed by oral tapering dose. Patient denies any history of diabetes, hypertension, tobacco use, alcohol. Patient lives by herself. She has no children. Patient's last MRI of the brain with and without contrast available is from 07/10/2017, which revealed numerous confluent appearance of white matter lesions. Most prominent periventricular white juxtacortical lesions are redemonstrated, lesion craniocervical junction is redemonstrated, besides other multiple lesions. There are 0.6 cm area of involvement of the right cerebral p eduncle. No enhancing lesions were seen. Patient's blood test shows mildly elevated WBC 16.8 with left shift. Chem-7 is normal. Lymphocytes are decreased 0.8. Liver functions are normal. Her last B12 474 on 08/13/2017, vitamin D 31.1. TSH normal. Her JCV antibodies are +1.73 on 02/15/2015. Review of Systems Complains of weakness, numbness. Denies diplopia. Denies chest pain shortness of breath wheezing cough. Denies abdominal pain nausea vomiting diarrhea. Denies neck or back pain. Complains of weight gain related to steroids in the past. All other review of systems unremarkable. Past Medical History Past Medical History: Musculoskeletal Disorder Additional Past Medical History / Comment(s): MS. History of Any Multi-Drug Resistant Organisms: None Reported Past Surgical History: No Surgical Hx Reported Smoking Status: Never smoker Past Alcohol Use History: None Reported Past Drug Use History: None Reported - Past Family History Father Family Medical History: Cancer Additional Family Medical History / Comment(s): Dad from colon CA Medications and Allergies Home Medications Medication Instructions Recorded Confirmed Type Baclofen [Lioresal] 10 mg PO TID 09/09/19 09/09/19 History Dimethyl Fumarate [Tecfidera] 240 mg PO BID@0800,199909/09/19 09/09/19 History predniSONE 10 mg PO DIRECTED #30 tab 09/10/19 Rx Allergies Allergy/AdvReac Type Severity Reaction Status Date / Time No Known Allergies Allergy Verified 09/09/19 19:17 Physical Examination - Vital Signs Vital Signs: Vital Signs Temp Pulse Pulse Resp BP BP Pulse Ox 09/10/19 12:14 98.2 F 80 20 104/69 94 L 09/10/19 04:35 98.0 F 84 16 115/66 95 09/09/19 20:50 98.8 F 94 18 107/64 95 09/09/19 20:27 98.4 F 88 16 121/71 96 Intake and Output 09/10/19 09/10/19 09/10/19 06:59 14:59 22:59 Intake Total 1000 1520 Balance 1000 1520 Intake: Intake, IV Titration 1000 800 Amount Sodium Chloride 0.9% 1, 1000 800 000 ml @ 100 mls/hr IV . Q10H [facility] Rx#:[id number] Oral 720 Other: Voiding Method Bedpan Toilet Toilet # Voids 4 3 On examination patient is a young female, very pleasant in no acute distress. Patient is alert and awake, fully oriented. Her speech and language functions are normal. Attention and concentration is intact but fund of knowledge is adequate. Patient's symptoms appears confused, as she wanted to get her prescription bottle of prednisone from the bathroom cupboard, not realizing that she is in the hospital. On cranial nerve examination pupils are round and reactive to light, visual wells are full on confrontation with no neglect. Extraocular muscles are intact with no nystagmus. Face is symmetric, tongue protrudes the midline. Palatal elevation sensation normal. Hearing and shoulder shrug normal muscle strength testing patient has slightly decreased strength for manager category in the left hand 5-as compared to the right. Her hip flexion is 5 on the right, 4+ left. Ankles and knees are normal. Reflexes are brisk and patient has bilateral Babinski. Sensory is decreased to touch on the left side of the body as compared to the right. Patient has ataxia for [id number] testing bilaterally, left more than right. And bulk of muscles normal. Patient does walk with a wide base, appears slightly unsteady. There is no bruit or murmur, peripheral pulses present. Abdomen soft and tender, chest clear. Results - Laboratory Findings CBC and BMP: 09/10/19 05:51 09/10/19 05:51 Abnormal Lab Findings: Abnormal Labs 09/09/19 09/09/19 09/09/19 16:35 16:35 17:08 WBC 16.8 H Neutrophils # 15.1 H Lymphocytes # APTT 30.5 H Sodium 136 L Carbon Dioxide 21 L Creatinine 0.50 L Glucose 128 H Creatine Kinase 772 H Urine Protein Urine Ketones Ur Squamous Epith Cells Urine Bacteria Urine Mucus 09/09/19 09/10/19 09/10/19 18:00 05:51 05:51 WBC 13.1 H Neutrophils # 12.0 H Lymphocytes # 0.8 L APTT Sodium Carbon Dioxide Creatinine 0.50 L Glucose 166 H Creatine Kinase Urine Protein 1+ H Urine Ketones 4+ H Ur Squamous Epith Cells 7 H Urine Bacteria Moderate H Urine Mucus Few H Assessment and Plan Assessment: * Relapsing remitting multiple sclerosis, came with another relapse of MS, with increased weakness left side of the body. Plan: * Patient currently on Solu-Medrol 1 g IVPB daily started yesterday. Today is day #2. She will be receiving the third dose tomorrow. * Patient wants to go home tomorrow. After completing IV Solu-Medrol treatment, oral tapering down dose of prednisone was recommended. Patient wants to take the schedule that was prescribed by her neurologist. I do not have access to that tapering schedule. Otherwise she can be given prednisone 60 mg daily for 7 days and decrease by 10 mg daily until off. She may need some Pepcid for gastric ulcer prophylaxis. * Patient states she is already scheduled for an MRI of the brain with and without contrast on 09/14/2019 at her neurologist office. Hopefully it will evaluate for any new MS relapse, rule out PML. * As patient has had 2 relapses within the last 6 months, she may benefit from switching to another disease modifying agent. She is positive for JCV antibodies, therefore Tysabri may be concerning, although Ocrevus could be considered. Patient was recommended to discuss with her neurologist about possibility of switching to another disease modifying agent. * Neurology coverage not available on the weekend.
[2019-09-10 21:48] VITALS: RESP 18
[2019-09-11] MEDS: methylPREDNISolone SOD SUCC 1,000 MG in SODIUM CHLORIDE 0.9% 250 ML IVPB SCH (08:28)
[2019-09-11] MEDS: (Dimethyl Fumarate [Tecfidera] 240 MG) PO SCH (08:28)
[2019-09-11] MEDS: FAMOTIDINE 20 MG TAB PO SCH (08:29)
[2019-09-11] MEDS: ENOXAPARIN 40 MG/0.4 ML SYRINGE SQ SCH (08:29)
[2019-09-11] MEDS: BACLOFEN 10 MG TAB PO SCH (08:29)
[2019-09-11 12:54] VITALS: BP 126/80; PULSE 88; TEMP 98.3
--- NOTE | 2019-09-11 14:49 | P.DS ---
Providers Date of admission: 09/09/19 18:29 Attending physician: Gurjit Canela Consults: 09/09/19 18:18 Consult Physician Urgent Consulting Provider: Tiara Woodward Consult Reason/Comments: suspected ms exacerbation Do you want consulting provider notified?: Yes Primary care physician: Esme Santos [facility] Course: 51-year-old pleasant female with a history of relapsing remitting multiple sclerosis grossly years ago without any recent relapse came in with complaints of increasing weakness has been going on for about a day predominantly in the left side of the patient's bad site is on the right side patient initially went presented to ER her stent on the left side is around 1-2/5 presently improved to 4/5 the left lower extremity was 4/5 in presently 4/5. Patient denied any other focal weaknesses denied any tingling or numbness denied any headache denied any visual problems. Denied any pain anywhere. Patient denied any bladder spasms or urinary incontinence or back spasms at this time. Patient denied any dysuria or increased urinary frequency denied any fever. Patient given his bit abnormal but but this is a some dry bacteria patient does have some leukocytosis reactive seconded to multiple sclerosis. 09/10/2019 Patient is seen and evaluated and follow-up and continues to have some weakness and spasms noted of the right lower extremity. Patient states that she feels somewhat better today. Patient did receive a gram of methylprednisolone IV and will continue with the daily dose 3. Patient is to receive another dose this morning and then again tomorrow. Discussed the current treatment plan with her neurologist nurse practitioner Lauren from Dr. Griffiths's office and due to the office being closed over the weekend they are in agreement with this treatment plan. Patient will also continue on a prednisone taper in the outpatient setting once discharged. Patient is scheduled to receive an MRI of the brain on Friday and Dr. Griffiths's office and will follow-up with them at the end of the week for results. Currently no report of chest pain, shortness of breath, or palpitations. Patient is afebrile. No reports of nausea or vomiting and patient is tolerating diet. 09/11/2019 Patient has significant improvement in her weakness and almost close to her baseline patient will be discharged today to follow up with the her neurologist as an outpatient on Friday. Patient received 3 doses of Solu-Medrol patient is being discharged on weaning dose of prednisone PHYSICAL EXAMINATION: GENERAL: The patient is alert and oriented x3, not in any acute distress. Well developed, well nourished. HEENT: Pupils are round and equally reacting to light. EOMI. No scleral icterus. No conjunctival pallor. Normocephalic, atraumatic. No pharyngeal erythema. No thyromegaly. CARDIOVASCULAR: S1 and S2 present. No murmurs, rubs, or gallops. PULMONARY: Chest is clear to auscultation, no wheezing or crackles. ABDOMEN: Soft, nontender, nondistended, normoactive bowel sounds. No palpable organomegaly. MUSCULOSKELETAL: No joint swelling or deformity. EXTREMITIES: No cyanosis, clubbing, or pedal edema. NEUROLOGICAL: patient weakness in the on the left side significantly improved now 4-5/5 strength in all 4 extremities SKIN: No rashes. multiple sclerosis exacerbation -Asymptomatic bacteriuria Patient Condition at Discharge: Stable Plan - Discharge Summary Discharge Rx Participant: No New Discharge Prescriptions: New predniSONE 10 mg PO DIRECTED #30 tab Continue Baclofen [Lioresal] 10 mg PO TID Dimethyl Fumarate [Tecfidera] 240 mg PO BID@ Discharge Medication List Baclofen [Lioresal] 10 mg PO TID 09/09/19 [History] Dimethyl Fumarate [Tecfidera] 240 mg PO BID@09/09/19 [History] predniSONE 10 mg PO DIRECTED #30 tab 09/10/19 [Rx] Follow up Appointment(s)/Referral(s): Tyrese Griffiths MD [Medical Doctor] - 1 Week Esme Santos MD [Primary Care Provider] - 1-2 days (Office is closed at time of appointment, patient to call Friday to make follow up appointment) Patient Instructions/Handouts: Prednisone (By mouth), Multiple Sclerosis (DC) Activity/Diet/Wound Care/Special Instructions: Activity Limited until follow-up Keep appointment of MRI and further testing at Dr. Griffiths's office this week (after testing, Lauren nurse practitioner in the office will schedule appointment for results later in the week) Follow-up with primary care provider upon discharge Continue current diet Continue with prednisone taper Discharge Disposition: HOME SELF-CARE
== END 2019-09-11 17:18 | disposition home or self-care (01) ==
LOC: EC 14:58 → 5NMEDONC 18:29
PROVIDERS: ADMIT Internal Medicine; ATTEND Internal Medicine
DX: G35 Multiple sclerosis (principal); R82.71 Bacteriuria; S80.12XA Contusion of left lower leg, initial encounter; R00.0 Tachycardia, unspecified; Z79.899 Other long term (current) drug therapy; Z79.52 Long term (current) use of systemic steroids; Z80.0 Family history of malignant neoplasm of digestive organs; Z11.59 Encounter for screening for other viral diseases
CPT/HCPCS: 96361 ×2; 96365; 96366 ×2; 96372 ×2; 96375; 99285; 36415; 93005; 97166; 80053; 80048; 84443; 82550; 83605; 84484; 85025 ×2; 85610; 85730; 81001; 87040; 87086; 71046; 70450; G0378 ×3; U0003; J2405; J2930 ×3; J1650 ×2; J0696

== ENCOUNTER → 2019-09-22 | Outpatient (CLI) | payer BC ==
--- NOTE | 2019-09-22 11:28 | FL ---
EXAMINATION TYPE: FL barium swallow w video DATE OF EXAM: 09/22/2019 MODIFIED SWALLOW / DEGLUTITION STUDY CLINICAL HISTORY: Dysphagia. History of multiple sclerosis. TECHNIQUE: Deglutition study is performed utilizing thin liquid barium, honey and nectar thick liqui d barium, barium thick applesauce, and barium coated cracker. A total of 38 seconds of fluoroscopic t tabitha utilized during procedure. 0 spot images saved to PACS. COMPARISON: None. FINDINGS: The oral and pharyngeal phases show satisfactory initiation and propagation with all modali ties tested. Normal mastication is seen with solid modalities tested. There is no evidence of penet ration or aspiration with any modality tested. No significant pharyngeal residue was appreciated. IMPRESSION: Normal deglutition study. Please refer to speech therapist notes for further details if necessary.
== END | disposition home or self-care (01) ==
LOC: RADFLMAIN 10:53
PROVIDERS: ATTEND Psychiatry & Neurology Neurology
DX: R13.10 Dysphagia, unspecified (principal)
CPT/HCPCS: 74230

== ENCOUNTER → 2019-10-15 | Outpatient (CLI) | payer BC ==
[2019-10-15 13:35] LABS: Basophils % (A) 0 %; Eosinophils # (A) 0.1 k/uL (0-0.7); Eosinophils % (A) 1 %; HCT 40.6 % (34.0-46.0); Lymphocytes % (A) 21 %; MCH 27.9 pg (25.0-35.0); MCHC 31.9 g/dL (31.0-37.0); MCV 87.2 fL (80.0-100.0); Mean Platelet Volume 8.7; Monocytes # (A) 0.4 k/uL (0-1.0); Monocytes % (A) 5 %; Neutrophils # (A) 6.7 k/uL (1.3-7.7); Neutrophils % (A) 72 %; Platelet Count 256 k/uL (150-450); RBC 4.66 m/uL (3.80-5.40); RDW 13.3 % (11.5-15.5); WBC 9.3 k/uL (3.8-10.6)
[2019-10-15 19:22] LABS: African American GFR (CKD) 131.2 (60.0-200.0); Albumin 4.6 g/dL (3.80-4.90); Albumin/Globulin Ratio 2.3 (1.60-3.17); Anion Gap 7.8 mmol/L (4.00-12.00); Calcium 9.6 mg/dL (8.7-10.3); Carbon Dioxide 27.2 mmol/L (21.6-31.8); Non-African American GFR(CKD) 113.2 (60.0-200.0); Potassium 4.3 mmol/L (3.5-5.5); Total Bilirubin 0.5 mg/dL (0.2-1.2); Total Protein 6.6 g/dL (6.2-8.2)
[2019-10-15 19:29] LABS: T4, Free (Free Thyroxine) 1.1 ng/dL (0.80-1.80)
== END | disposition home or self-care (01) ==
LOC: LABWHC1 11:34
PROVIDERS: ATTEND Nurse Practitioner Acute Care
DX: G35 Multiple sclerosis (principal)
CPT/HCPCS: 36415; 80053; 84439; 84443; 84481; 85025

== ENCOUNTER 2019-12-08 17:12 | Inpatient (IN) | payer BC ==
[2019-12-08 17:19] LABS: Glucose,Whole Blood 144 mg/dL (75-99)
--- NOTE | 2019-12-08 17:31 | ED ---
General Adult HPI - General Stated complaint: altered mental status Time Seen by Provider: 12/08/19 17:14 Source: EMS Mode of arrival: EMS Limitations: altered mental status - History of Present Illness Initial comments: Dictation was produced using [employer] dictation software. please excuse any grammatical, word or spelling errors. This patient was cared for during a federal and state declared state of emergency secondary to Covid 19 Chief Complaint: 44-year-old male presents with altered mental status. History of Present Illness: 44-year-old female she presents with EMS. Patient was last seen normal last night. She was found to be normal over the phone at approximately 10:30 AM. Temperature to call patient at 3 PM and she did not respond. Family then tried to call again at 4 PM and she did not respond. [address] and found her on the couch minimally responsive. Patient unable to provide history at this time secondary to mental status. According EMS patient has a history of multiple sclerosis. No other information is available at this time. The ROS is unable to be obtained secondary to mental status PHYSICAL EXAM: General Impression: Non-verbal, having like to the right HEENT: Normocephalic atraumatic, extra-ocular movements intact, pupils equal and reactive to light bilaterally, pupils 4 mm, mucous membranes moist. Cardiovascular: Heart regular rate and rhythm Chest: no retractions, no tachypnea Abdomen: abdomen soft, non-tender, non-distended, no organomegaly Musculoskeletal: Pulses present and equal in all extremities, no peripheral edema Motor: Flaccid paralysis of the left leg Neurological: Aphasic, nonverbal, no facial droop, equal pupils. Michael-neglect to the right, no sensation to painful stimuli to the right fingernail beds she does localize stimuli, she moves her right leg with painful similar to the left leg. No rigidity to the extremities Skin: Intact with no visualized rashes ED course: 44-year-old female with past medical history multiple sclerosis presents with altered mental status. Vital signs upon arrival are within acceptable limits. [id number] blood glucose is within acceptable limits. Code stroke page. Discussed patient case with Dr. Tenorio's nurse practitioner. I did speak personally with Dr. Tenorio approximately 5:35 PM. He is currently reviewing the films. Images were reviewed by Dr. Stevenson. He states that no indication for thrombectomy. Patient is outside of the TPA window. He recommends EEG, MRI and neurology consultation. Laboratory evaluation obtained. Leukocytosis of 19.5 with neutrophils of 17.7. This is likely from steroid use and emargination. Coag panel unremarkable. Metabolic panel shows no anion gap acidosis. Troponin is elevated 0.359. No elevated creatinine kinase. Glucose slightly elevated likely again from the steroids. Urinalysis unremarkable. Tox labs are negative. Patient reevaluated at bedside and is resting comfortably. She still nonverbal. Patient be admitted with consultation to neurology, cardiology. Discussed patient case with Cony Heath who is on-call for [facility] hospitalist group. EKG interpretation: Ventricular rate 96, normal sinus rhythm, NE interval 16, QRS 76, QTC 439. No NE prolongation, no QTC prolongation. There is a T-wave inversion in lead 3. - Related Data Home Medications Medication Instructions Recorded Confirmed Baclofen [Lioresal] 10 mg PO TID 09/09/19 12/08/19 Dimethyl Fumarate [Tecfidera] 240 mg PO BID@0800,199909/09/19 12/08/19 Ampyra 10mg 10 mg PO BID@0800,199912/08/19 12/08/19 Allergies Allergy/AdvReac Type Severity Reaction Status Date / Time No Known Allergies Allergy Verified 09/09/19 19:17 Review of Systems ROS Statement: Those systems with pertinent positive or pertinent negative responses have been documented in the HPI. ROS Other: All systems not noted in ROS Statement are negative. Past Medical History Past Medical History: Musculoskeletal Disorder Additional Past Medical History / Comment(s): MS. History of Any Multi-Drug Resistant Organisms: None Reported Past Surgical History: No Surgical Hx Reported Past Alcohol Use History: None Reported Past Drug Use History: None Reported - Past Family History Father Family Medical History: Cancer Additional Family Medical History / Comment(s): Dad from colon CA General Exam Limitations: altered mental status Course Vital Signs 12/08/19 12/08/19 12/08/19 17:14 17:20 17:30 Temperature 98.1 F 98.1 F Pulse Rate 106 H 96 94 Respiratory 18 16 16 Rate Blood Pressure 126/77 126/85 126/85 O2 Sat by Pulse 97 94 L 98 Oximetry 09/02/20 09/02/20 09/02/20 17:45 18:00 18:15 Temperature 98.3 F Pulse Rate 88 86 89 Respiratory 17 18 17 Rate Blood Pressure 126/87 132/90 102/79 O2 Sat by Pulse 96 98 98 Oximetry 12/08/19 12/08/19 18:30 18:54 Temperature Pulse Rate 88 84 Respiratory 18 12 Rate Blood Pressure 88/65 115/82 O2 Sat by Pulse 98 98 Oximetry Medical Decision Making - Lab Data Result diagrams: 12/08/19 17:26 12/08/19 17:26 Lab Results 12/08/19 12/08/19 12/08/19 Range/Units 17:18 17:26 17:26 WBC 19.5 H (3.8-10.6) k/uL RBC 4.71 (3.80-5.40) m/uL Hgb 12.9 (11.4-16.0) gm/dL Hct 40.3 (34.0-46.0) % MCV 85.5 (80.0-100.0) fL MCH 27.4 (25.0-35.0) pg MCHC 32.0 (31.0-37.0) g/dL RDW 13.2 (11.5-15.5) % Plt Count 257 (150-450) k/uL Neutrophils % 91 % Lymphocytes % 5 % Monocytes % 3 % Eosinophils % 1 % Basophils % 0 % Neutrophils # 17.7 H (1.3-7.7) k/uL Lymphocytes # 1.0 (1.0-4.8) k/uL Monocytes # 0.6 (0-1.0) k/uL Eosinophils # 0.1 (0-0.7) k/uL Basophils # 0.1 (0-0.2) k/uL PT 10.2 (9.0-12.0) sec INR 1.0 (<1.2) APTT 27.8 (22.0-30.0) sec Sodium (137-145) mmol/L Potassium (3.5-5.1) mmol/L Chloride (98-107) mmol/L Carbon Dioxide (22-30) mmol/L Anion Gap mmol/L BUN (7-17) mg/dL Creatinine (0.52-1.04) mg/dL Est GFR (CKD-EPI)AfAm (>60 ml/min/1.73 sqM) Est GFR (CKD-EPI)NonAf (>60 ml/min/1.73 sqM) Glucose (74-99) mg/dL POC Glucose (mg/dL) 144 H (75-99) mg/dL POC Glu Equipment Validation Specialist ID Althea Bryant Osmolality (280-301) mosm/kg Calcium (8.4-10.2) mg/dL Total Bilirubin (0.2-1.3) mg/dL AST (14-36) U/L ALT (4-34) U/L Alkaline Phosphatase (38-126) U/L Creatine Kinase (30-135) U/L Troponin I (0.000-0.034) ng/mL Total Protein (6.3-8.2) g/dL Albumin (3.5-5.0) g/dL TSH (0.465-4.680) mIU/L Urine Color Urine Appearance (Clear) Urine pH (5.0-8.0) Ur Specific [place] (1.001-1.035) Urine Protein (Negative) Urine Glucose (UA) (Negative) Urine Ketones (Negative) Urine Blood (Negative) Urine Nitrite (Negative) Urine Bilirubin (Negative) Urine Urobilinogen (<2.0) mg/dL Ur Leukocyte Esterase (Negative) Urine HCG, Qual (Not Detectd) Salicylates mg/dL Acetaminophen ug/mL Serum Alcohol mg/dL 12/08/19 12/08/19 12/08/19 Range/Units 17:26 17:26 17:26 WBC (3.8-10.6) k/uL RBC (3.80-5.40) m/uL Hgb (11.4-16.0) gm/dL Hct (34.0-46.0) % MCV (80.0-100.0) fL MCH (25.0-35.0) pg MCHC (31.0-37.0) g/dL RDW (11.5-15.5) % Plt Count (150-450) k/uL Neutrophils % % Lymphocytes % % Monocytes % % Eosinophils % % Basophils % % Neutrophils # (1.3-7.7) k/uL Lymphocytes # (1.0-4.8) k/uL Monocytes # (0-1.0) k/uL Eosinophils # (0-0.7) k/uL Basophils # (0-0.2) k/uL PT (9.0-12.0) sec INR (<1.2) APTT (22.0-30.0) sec Sodium 137 (137-145) mmol/L Potassium 4.2 (3.5-5.1) mmol/L Chloride 107 (98-107) mmol/L Carbon Dioxide 24 (22-30) mmol/L Anion Gap 6 mmol/L BUN 19 H (7-17) mg/dL Creatinine 0.55 (0.52-1.04) mg/dL Est GFR (CKD-EPI)AfAm >90 (>60 ml/min/1.73 sqM) Est GFR (CKD-EPI)NonAf >90 (>60 ml/min/1.73 sqM) Glucose 156 H (74-99) mg/dL POC Glucose (mg/dL) (75-99) mg/dL POC Glu Equipment Validation Specialist ID Osmolality 294 (280-301) mosm/kg Calcium 9.2 (8.4-10.2) mg/dL Total Bilirubin 0.2 (0.2-1.3) mg/dL AST 19 (14-36) U/L ALT 16 (4-34) U/L Alkaline Phosphatase 37 L (38-126) U/L Creatine Kinase (30-135) U/L Troponin I 0.359 H* (0.000-0.034) ng/mL Total Protein 6.4 (6.3-8.2) g/dL Albumin 4.1 (3.5-5.0) g/dL TSH 1.070 (0.465-4.680) mIU/L Urine Color Yellow Urine Appearance Clear (Clear) Urine pH 5.5 (5.0-8.0) Ur Specific [place] 1.006 (1.001-1.035) Urine Protein Negative (Negative) Urine Glucose (UA) Negative (Negative) Urine Ketones Negative (Negative) Urine Blood Negative (Negative) Urine Nitrite Negative (Negative) Urine Bilirubin Negative (Negative) Urine Urobilinogen <2.0 (<2.0) mg/dL Ur Leukocyte Esterase Negative (Negative) Urine HCG, Qual (Not Detectd) Salicylates <1.0 mg/dL Acetaminophen <10.0 ug/mL Serum Alcohol mg/dL 12/08/19 12/08/19 12/08/19 Range/Units 17:26 17:54 18:23 WBC (3.8-10.6) k/uL RBC (3.80-5.40) m/uL Hgb (11.4-16.0) gm/dL Hct (34.0-46.0) % MCV (80.0-100.0) fL MCH (25.0-35.0) pg MCHC (31.0-37.0) g/dL RDW (11.5-15.5) % Plt Count (150-450) k/uL Neutrophils % % Lymphocytes % % Monocytes % % Eosinophils % % Basophils % % Neutrophils # (1.3-7.7) k/uL Lymphocytes # (1.0-4.8) k/uL Monocytes # (0-1.0) k/uL Eosinophils # (0-0.7) k/uL Basophils # (0-0.2) k/uL PT (9.0-12.0) sec INR (<1.2) APTT (22.0-30.0) sec Sodium (137-145) mmol/L Potassium (3.5-5.1) mmol/L Chloride (98-107) mmol/L Carbon Dioxide (22-30) mmol/L Anion Gap mmol/L BUN (7-17) mg/dL Creatinine (0.52-1.04) mg/dL Est GFR (CKD-EPI)AfAm (>60 ml/min/1.73 sqM) Est GFR (CKD-EPI)NonAf (>60 ml/min/1.73 sqM) Glucose (74-99) mg/dL POC Glucose (mg/dL) (75-99) mg/dL POC Glu Equipment Validation Specialist ID Osmolality (280-301) mosm/kg Calcium (8.4-10.2) mg/dL Total Bilirubin (0.2-1.3) mg/dL AST (14-36) U/L ALT (4-34) U/L Alkaline Phosphatase (38-126) U/L Creatine Kinase 60 (30-135) U/L Troponin I (0.000-0.034) ng/mL Total Protein (6.3-8.2) g/dL Albumin (3.5-5.0) g/dL TSH (0.465-4.680) mIU/L Urine Color Urine Appearance (Clear) Urine pH (5.0-8.0) Ur Specific [place] (1.001-1.035) Urine Protein (Negative) Urine Glucose (UA) (Negative) Urine Ketones (Negative) Urine Blood (Negative) Urine Nitrite (Negative) Urine Bilirubin (Negative) Urine Urobilinogen (<2.0) mg/dL Ur Leukocyte Esterase (Negative) Urine HCG, Qual Not Detected (Not Detectd) Salicylates mg/dL Acetaminophen ug/mL Serum Alcohol <10 mg/dL Critical Care Time Critical Care Time: Yes Total Critical Care Time: 37 Disposition Clinical Impression: Altered mental status Disposition: ADMITTED IP TO THIS [facility] Condition: Fair Referrals: Nonstaff,Physician [Primary Care Provider] - 1-2 days Decision Time: 18:57
[2019-12-08 17:33] LABS: Appearance,Urine Clear (Clear); Basophils # (A) 0.1 k/uL (0-0.2); Basophils % (A) 0 %; Bilirubin,Urine Negative (Negative); Blood,Urine Negative (Negative); Color,Urine Yellow; Eosinophils # (A) 0.1 k/uL (0-0.7); Eosinophils % (A) 1 %; Glucose,Urine (UA) Negative (Negative); HCT 40.3 % (34.0-46.0); HGB 12.9 gm/dL (11.4-16.0); Ketones,Urine Negative (Negative); Leukocyte Esterase,Urine Negative (Negative); Lymphocytes % (A) 5 %; MCH 27.4 pg (25.0-35.0); MCV 85.5 fL (80.0-100.0); Mean Platelet Volume 8.4; Monocytes # (A) 0.6 k/uL (0-1.0); Monocytes % (A) 3 %; Neutrophils # (A) 17.7 k/uL (1.3-7.7); Neutrophils % (A) 91 %; Nitrite,Urine Negative (Negative); PH, Urine 5.5 (5.0-8.0); Platelet Count 257 k/uL (150-450); Protein,Urine Negative (Negative); RBC 4.71 m/uL (3.80-5.40); RDW 13.2 % (11.5-15.5); Specific Gravity,Urine 1.006 (1.001-1.035); Urobilinogen,Urine <2.0 mg/dL (<2.0); WBC 19.5 k/uL (3.8-10.6)
[2019-12-08 17:41] LABS: Partial Thromboplastin Time 27.8 sec (22.0-30.0); Prothrombin Time 10.2 sec (9.0-12.0)
[2019-12-08 17:42] LABS: ALT 16 U/L (4-34); AST 19 U/L (14-36); Acetaminophen <10.0 ug/mL; African American GFR (CKD) >90 (>60 ml/min/1.73 sqM); Albumin 4.1 g/dL (3.5-5.0); Alkaline Phosphatase 37 U/L (38-126); Anion Gap 6 mmol/L; Blood Urea Nitrogen 19 mg/dL (7-17); Calcium 9.2 mg/dL (8.4-10.2); Carbon Dioxide 24 mmol/L (22-30); Chloride 107 mmol/L (98-107); Glucose 156 mg/dL (74-99); Non-African American GFR(CKD) >90 (>60 ml/min/1.73 sqM); Potassium 4.2 mmol/L (3.5-5.1); Salicylate <1.0 mg/dL; Sodium 137 mmol/L (137-145); Total Bilirubin 0.2 mg/dL (0.2-1.3); Total Protein 6.4 g/dL (6.3-8.2)
--- NOTE | 2019-12-08 17:44 | CT ---
EXAMINATION TYPE: CT brain wo con DATE OF EXAM: 12/08/2019 COMPARISON: 09/09/2019 HISTORY: Altered mental status. CT DLP: 1101.8 mGycm Automated exposure control for dose reduction was used. Ventricles have fairly normal size. There is some patchy hypodensity in the periventricular white mat ter involving the frontal parietal lobes. There is relative sparing of the occipital lobes. Cerebellu m is intact. Sella turcica appears normal. There is some thinning of the corpus callosum. The calvari um is intact. Skull base is intact. There is normal aeration of the gastric sinuses. IMPRESSION: Periventricular white matter changes could relate to demyelinating disease or chronic small vessel is chemia. No change compared to recent exam.
--- NOTE | 2019-12-08 18:00 | CT ---
EXAMINATION TYPE: CT angio head neck DATE OF EXAM: 12/08/2019 COMPARISON: None HISTORY: Weakness CT DLP: mGycm Automated exposure control for dose reduction was used. CONTRAST: Performed , patient injected with mL of . The contrast was Isovue 65 mL. There is intact aortic arch. There is normal branching pattern of the great vessels on the aortic arc h. There is arterial flow in the common internal and external carotid arteries bilaterally. There is art erial flow in both vertebral arteries. There is arterial flow in the vertebrobasilar artery system. T he carotid arteries appear widely patent. Bifurcations appear normal. There is no evidence of any felicia que formation. There is arterial flow in the anterior middle and posterior cerebral arteries. There is no evidence o f intracranial arterial stenosis. There is normal contrast opacification of the venous sinuses. There is no mass effect. There is no evidence of intracranial aneurysm or neovascularity. IMPRESSION: Normal CT angiogram of the neck. Normal CT angiogram of the brain.
--- NOTE | 2019-12-08 18:02 | XR ---
EXAMINATION TYPE: XR chest 1V portable DATE OF EXAM: 12/08/2019 COMPARISON: 09/09/2019 HISTORY: Weakness TECHNIQUE: FINDINGS: Heart and mediastinum are normal. Lungs are clear. Diaphragm is normal. The pulmonary vascu larity is normal. There are chest leads. Bony thorax is intact. IMPRESSION: Normal chest. There is clearing of some infiltrate in the left lower lobe compared to old exam.
[2019-12-08] MEDS ORDERED: HEPARIN SODIUM,PORCINE 5,000 UNIT/ML 1 ML VIAL IV PRN (18:24)
[2019-12-08] MEDS ORDERED: HEPARIN SODIUM,PORCINE 5,000 UNIT/ML 1 ML VIAL IV ONE (18:24)
[2019-12-08] MEDS ORDERED: HEPARIN SOD,PORK IN 0.45% NACL 25,000 UNIT in 0.45% NACL 1 250ML.BAG IV SCH (18:30)
[2019-12-08] MEDS ORDERED: ASPIRIN 600 MG SUPP RECTAL STA (18:34)
[2019-12-08] MEDS ORDERED: SODIUM CHLORIDE 0.9% 1,000 ML IV STA (18:47)
[2019-12-08] MEDS ORDERED: NALOXONE 0.4 MG/ML 1 ML VIAL IV PRN (18:53)
[2019-12-08] MEDS: SODIUM CHLORIDE 0.9% 1,000 ML IV SCH (19:36)
[2019-12-09] MEDS: ONDANSETRON 4 MG/2 ML VIAL IVP PRN ×2 (05:13→20:41)
[2019-12-09] MEDS: SODIUM CHLORIDE 0.9% 1,000 ML IV SCH ×2 (05:14→15:26)
--- NOTE | 2019-12-09 09:25 | P.CRDCN ---
History of Present Illness Consult date: 12/09/19 History of present illness: CHIEF COMPLAINT: Elevated Troponin HISTORY OF PRESENT ILLNESS: 44-year-old female with history of multiple sclerosis who presented to the emergency room secondary to altered mental status. Cardiology was consulted secondary to elevated troponin. Patient examined this morning at the bedside. She has a friend at the bedside who is providing the majority of the HPI. Friend states he went over to check on the patient yesterday and she was sitting in the chair and was "out of it". He reports she was not able to communicate with them. The patient is talking this morning but her words are not appropriate to the questions being asked. She is able to answer some yes/no questions. She denies chest pain at the time of examination. She denies shortness of breath. DIAGNOSTICS: EKG reveals sinus rhythm. Heart rate 96. Chest xray negative for acute process. Laboratory data: WBC 19.5. Hemoglobin 12.9. Platelet count 257. Sodium 137. Potassium 4.2. BUN 19. Creatinine 0.55. Troponin 0.359. Current home cardiac medications include: none REVIEW OF SYSTEMS: Unable to obtain a thorough review of systems secondary to altered mental status PHYSICAL EXAM: VITAL SIGNS: Reviewed. GENERAL: Well-developed in no acute distress. HEENT: Head is normocephalic. Pupils are equal, round. Sclerae anicteric. Mucous membranes of the mouth are moist. Neck supple. No JVD or thyromegaly LUNGS: Respirations even and unlabored. Lungs essentially clear to auscultation bilaterally. HEART: Regular rate and rhythm. S1 and S2 heard. ABDOMEN: Soft. Nondistended. Nontender. EXTREMITIES: Normal range of motion. No clubbing or cyanosis. Peripheral pulses intact. No lower extremity edema NEUROLOGIC: Awake and alert. ASSESSMENT: Altered mental status Abnormal troponin, no evidence of acute coronary syndrome Multiple sclerosis PLAN: Continue IV heparin Obtain additional troponin Obtain 2-D echo to assess cardiac structure and function Further recommendations pending patient's course Nurse practitioner note has been reviewed by physician. Signing provider agrees with the documented findings, assessment, and plan of care. Past Medical History Past Medical History: Musculoskeletal Disorder Additional Past Medical History / Comment(s): MS. History of Any Multi-Drug Resistant Organisms: None Reported Past Surgical History: No Surgical Hx Reported Past Anesthesia/Blood Transfusion Reactions: No Reported Reaction Past Psychological History: No Psychological Hx Reported Smoking Status: Never smoker Past Alcohol Use History: None Reported Past Drug Use History: None Reported - Past Family History Father Family Medical History: Cancer Additional Family Medical History / Comment(s): Dad from colon CA Medications and Allergies Home Medications Medication Instructions Recorded Confirmed Type Baclofen [Lioresal] 10 mg PO TID 09/09/19 12/08/19 History Dimethyl Fumarate [Tecfidera] 240 mg PO BID@0800,199909/09/19 12/08/19 History Ampyra 10mg 10 mg PO BID@0800,199912/08/19 12/08/19 History Allergies Allergy/AdvReac Type Severity Reaction Status Date / Time No Known Allergies Allergy Verified 09/09/19 19:17 Physical Exam Vitals: Vital Signs Temp Pulse Pulse Resp BP BP Pulse Ox 12/09/19 08:12 99.2 F 94 18 110/64 97 12/09/19 04:00 99.6 F 100 18 109/61 97 12/09/19 00:00 98.7 F 97 18 117/64 96 12/08/19 20:22 97.8 F 103 H 18 117/62 97 12/08/19 19:30 99.5 F 90 17 110/78 97 12/08/19 19:15 89 19 116/78 98 12/08/19 19:00 87 19 115/72 99 12/08/19 18:54 84 12 115/82 98 12/08/19 18:45 92 17 119/91 98 12/08/19 18:30 88 18 88/65 98 12/08/19 18:15 89 17 102/79 98 12/08/19 18:00 86 18 132/90 98 12/08/19 17:45 98.3 F 88 17 126/87 96 12/08/19 17:30 98.1 F 94 16 126/85 98 12/08/19 17:20 98.1 F 96 16 126/85 94 L 12/08/19 17:14 106 H 18 126/77 97 Intake and Output 12/08/19 12/09/19 12/09/19 22:59 06:59 14:59 Output Total 650 Balance -650 Output: Urine 650 Other: Voiding Method Indwelling Catheter Indwelling Catheter Weight 62.142 kg 63.5 kg Results 12/08/19 17:26 12/08/19 17:26 Cardiac Enzymes 12/08/19 12/08/19 Range/Units 17:26 17:26 AST 19 (14-36) U/L Troponin I 0.359 H* (0.000-0.034) ng/mL Coagulation 12/08/19 12/09/19 Range/Units 17:26 01:08 PT 10.2 (9.0-12.0) sec APTT 27.8 45.1 H (22.0-30.0) sec CBC 12/08/19 Range/Units 17:26 WBC 19.5 H (3.8-10.6) k/uL RBC 4.71 (3.80-5.40) m/uL Hgb 12.9 (11.4-16.0) gm/dL Hct 40.3 (34.0-46.0) % Plt Count 257 (150-450) k/uL Comprehensive Metabolic Panel 12/08/19 Range/Units 17:26 Sodium 137 (137-145) mmol/L Potassium 4.2 (3.5-5.1) mmol/L Chloride 107 (98-107) mmol/L Carbon Dioxide 24 (22-30) mmol/L BUN 19 H (7-17) mg/dL Creatinine 0.55 (0.52-1.04) mg/dL Glucose 156 H (74-99) mg/dL Calcium 9.2 (8.4-10.2) mg/dL AST 19 (14-36) U/L ALT 16 (4-34) U/L Alkaline Phosphatase 37 L (38-126) U/L Total Protein 6.4 (6.3-8.2) g/dL Albumin 4.1 (3.5-5.0) g/dL Current Medications Generic Name Dose Route Start Last Admin Trade Name Freq PRN Reason Stop Dose Admin Heparin Sodium (Porcine) 0 unit 12/08/19 18:24 Heparin IV PER PROTOCOL PRN Low PTT Protocol Heparin Sodium/Sodium Chloride 250 mls @ 7.457 mls/hr 12/08/19 18:30 12/08/19 19:35 25,000 unit/ Sodium Chloride IV 12 units/kg/hr .Q24H TRIP 7.457 mls/hr Administration Protocol 12 UNITS/KG/HR Sodium Chloride 1,000 mls @ 100 mls/hr 12/08/19 19:00 12/09/19 05:14 Saline 0.9% IV 100 mls/hr .Q10H TRIP Administration Naloxone HCl 0.2 mg 12/08/19 18:53 Narcan IV Q2M PRN Opioid Reversal Ondansetron HCl 4 mg 12/08/19 18:53 12/09/19 05:13 Zofran IVP 4 mg Q8HR PRN Administration Nausea And Vomiting Intake and Output 12/08/19 12/09/19 12/09/19 22:59 06:59 14:59 Output Total 650 Balance -650 Output: Urine 650 Other: Voiding Method Indwelling Catheter Indwelling Catheter Weight 62.142 kg 63.5 kg 12/08/19 17:26 12/08/19 17:26
--- NOTE | 2019-12-09 09:37 | P.CNNES ---
History of Present Illness Consult date: 12/09/19 Requesting physician: Jaden Soria Reason for Consult: altered mental status History of Present Illness: This is a 44-year-old female with medical history of relapsing remitting multiple sclerosis since age 31, who presented to the emergency department on 12/08/2019 for altered mental status. According to the medical record the patient was last seen normal on 12/07/2019 which is that the night before presentation to the hospital. She was found that to be normal over the phone approximately 10:30 AM on the day of presentation. It seems that the family members tried to contact the patient at 3:00 but no response to and they try to get a 4 PM and again there is no response. The patient was found on the couch or minimally responsive. Upon seeing the patient today the only thing I got out of her was her name. Otherwise she was repeating the same phrase and 1976. I spoke with the patient's close friend was at bedside (Fili), stated that the patient was found unresponsive yesterday and when she woke up she was not responding to any question she did have an incident of urinary incontinence there is no bowel incontinence there is a no foaming around the mouth or any evidence of bleeding around the mouth. She was in jerking when he saw her. She was responding again to any questions. He said that in September she had an episode where she felt was found unresponsive but when he found her she was unresponsive to questions and verbalizing. Patient does not have history of seizures. He feels that the patient is a somewhat improving from yesterday to today and she is a little bit more responsive today and answering at few questions compared to yesterday. He stated that she was having any fevers recently that she complained of to him the any chills any sick contacts the. The only new medication that she was on is Ampyra 10 mg 1 tablet daily that was started the last week and this week she's supposed to be on 2 tablets daily and it was started by her neurologist Dr. [facility] for her MS. Otherwise he is not on any new medication. She denies any history of diabetes hypertension all call use. Patient lives by herself. Patient has residual right-sided weakness from her MS. Patient initial vitals on presentation was blood pressure of 126/77, with a heart rate of 106, respiratory of 18, temperature of 98.1 Fahrenheit, and the pulse ox of 97 at room air. Hospital workup so far consisted of: CT of the head that was done in the ED was reported as periventricular white matter change could relate to demyelinating disease or chronic small vessel ischemia. No change compared to recent exam (09/09/2019). CT angiogram of the head and neck was reported as normal. EKG was reported as normal sinus rhythm. Ventricular rate of 96. On presentation her white blood cell was 19.5 mostly neutrophilic. Patient the troponin level on presentation was 0.359. Patient as a result was placed on IV heparin drip the in the hospital. Per the ED team patient is on steroids and that's why they felt that her leukocytosis as well as glucose was elevated. Dr. Gilliam was contacted by ED team regarding possible stroke, no TPA was given since the patient outside the window. Of note the patient was seen by Dr. Woodward (Neuro-hospitalist) over at at this facility for suspected MS exacerbation, in which the patient had increased weakness over the left side. Patient received IV Solu-Medrol for 3 days. Patient follows up with Dr. Griffiths nurse practitioner. She was initially placed on Rebif but then was switched to Gilenya. Patient has been on Ticfidera for a long time. So patient's last relapse was in the beginning of September 2019. Her TONYA virus antibodies are 1.73 on 02/15/2015. Patient last MRI of the brain in our record was on 07/10/2017, which revealed numerous confluent appearance of white matter lesion. Most prominent that periventricular white object cortical lesion redemonstrated, legion craniocervical junction is redemonstrated, besides other multiple lesion. There are 0.6 cm area of involvement of the right cerebral peduncle. No enhancing lesions were seen. Per the patient's friend that she is also on baclofen 10 mg 1 tablet 3 times a day regarding her MS as well as stick figure. Her last IV steroids was at Dr. Griffiths's office about a month ago per the patient's friend. Review of Systems Review of system: The 12 point system was reviewed and apparent positive and negative per HPI. Past Medical History Past Medical History: Musculoskeletal Disorder Additional Past Medical History / Comment(s): MS. History of Any Multi-Drug Resistant Organisms: None Reported Past Surgical History: No Surgical Hx Reported Past Anesthesia/Blood Transfusion Reactions: No Reported Reaction Past Psychological History: No Psychological Hx Reported Smoking Status: Never smoker Past Alcohol Use History: None Reported Past Drug Use History: None Reported - Past Family History Father Family Medical History: Cancer Additional Family Medical History / Comment(s): Dad from colon CA Medications and Allergies Home Medications Medication Instructions Recorded Confirmed Type Baclofen [Lioresal] 10 mg PO TID 09/09/19 12/08/19 History Dimethyl Fumarate [Tecfidera] 240 mg PO BID@0800,199909/09/19 12/08/19 History Ampyra 10mg 10 mg PO BID@0800,199912/08/19 12/08/19 History Allergies Allergy/AdvReac Type Severity Reaction Status Date / Time No Known Allergies Allergy Verified 09/09/19 19:17 Physical Examination - Vital Signs Vital Signs: Vital Signs Temp Pulse Pulse Resp BP BP Pulse Ox 12/09/19 04:00 99.6 F 100 18 109/61 97 12/09/19 00:00 98.7 F 97 18 117/64 96 12/08/19 20:22 97.8 F 103 H 18 117/62 97 12/08/19 19:30 99.5 F 90 17 110/78 97 12/08/19 19:15 89 19 116/78 98 12/08/19 19:00 87 19 115/72 99 12/08/19 18:54 84 12 115/82 98 12/08/19 18:45 92 17 119/91 98 12/08/19 18:30 88 18 88/65 98 12/08/19 18:15 89 17 102/79 98 12/08/19 18:00 86 18 132/90 98 12/08/19 17:45 98.3 F 88 17 126/87 96 12/08/19 17:30 98.1 F 94 16 126/85 98 12/08/19 17:20 98.1 F 96 16 126/85 94 L 12/08/19 17:14 106 H 18 126/77 97 Intake and Output 12/08/19 12/09/19 12/09/19 22:59 06:59 14:59 Output Total 650 Balance -650 Output: Urine 650 Other: Voiding Method Indwelling Catheter Indwelling Catheter Weight 62.142 kg 63.5 kg GENERAL: The patient is lying in bed and is not in acute distress. CHEST: The heart rate is regular rate rhythm. No murmurs to auscultation. LUNG: Clear to auscultation bilaterally no wheezing noted throughout. Not labored breathing. ABDOMEN/GI: Bowel sounds present in all 4 quadrants. No tenderness to palpation throughout. NEUROLOGICAL: Higher mental function: The patient is awake, alert, oriented to self only. She was repeating the same phrase 1977. Patient is following simple commands intermittently such as showing a thumbs up making a fist. Cranial nerves: The pupils are round, equal and reactive to light. Visual wells are full to threat throughout. Extraocular movement was tracking throughout room and no nystagmus is noted. No facial weakness was noted the bilaterally. HNo dysarthria is noted. Shoulder shrug is normal bilaterally. Motor: Gait is defered. The strength is 5 over 5 throughout. Normal tone and bulk. Cerebellum: Normal finger to nose heel to chin bilaterally. Sensation: Sensation is normal to touch throughout. Reflexes (right/left): Bilateral upper extremities are 2-3+ while lower extremities are 3+ bilaterally. Plantars are upgoing bilaterally. Results Coagulation study: The PT is 10.2, INR 1.0, PTT of 27.8 UA was negative for UTI. Serum all call was less than 10 that acetaminophen was less than 10 and Salicylates <1.0. TSH is 1.07 AST of 19 ALTs of 16 - Laboratory Findings CBC and BMP: 12/08/19 17:26 12/08/19 17:26 Abnormal Lab Findings: Abnormal Labs 12/08/19 12/08/19 12/08/19 17:18 17:26 17:26 WBC 19.5 H Neutrophils # 17.7 H APTT BUN 19 H Glucose 156 H POC Glucose (mg/dL) 144 H Alkaline Phosphatase 37 L Troponin I 12/08/19 12/09/19 17:26 01:08 WBC Neutrophils # APTT 45.1 H BUN Glucose POC Glucose (mg/dL) Alkaline Phosphatase Troponin I 0.359 H* Assessment and Plan Assessment: This is a 44-year-old female with medical history of relapsing remitting multiple sclerosis since age 31, who presented to the emergency department on 12/08/2019 for altered mental status. Per patient friend she was found down on the couch yesterday and not verberalizing which is new. He said she had an episode of unresponsiveness in September but was verberalizing. She has not history of seizure. Aphasia possibly due to seizure activity Relapsing remitting MS Elevated troponin Plan: Since patient has altered mental status I ordered a routine EEG: Preliminary report there is a sharp and slow wave activity over the left frontocentral temporal region that were sometimes coming in runs. There is also slowing over the left hemisphere predominantly over left frontocentral temporal region. There is no clear seizure activity seen. Ordered STAT MRI of the brain with and without to rule out stroke vs new MS lesion: Was reported as No Evidence of acute ischemia. Finding consistent with the patient history of multiple sclerosis. I ordered the ammonia level, vitamin B12, folate level. If the patient continues to be unresponsive in the MR the brain does not show any acute lesion in the EEG doesn't show any seizures we'll consider lumbar puncture possibly at. Leukocytosis I cannot be certain that it's the due to steroids according to the friends as she had about a month ago possibly could be reactive because it elevated troponin or there is an underlying infection. Patient is on the Ampyra was started last week and that she start taking 1 ta blet daily and this week and she is supposed to be on patellar daily. The drug I can the increased risk of procedure which is very minimal risk but it's a risk. Recommend discontinue this medication. If the patient continues to have these periods of unresponsiveness recommend long-term EEG to truly find out if these are truly seizures in nature. Regarding the elevated troponin and cardiology is on board and we'll defer the management to them. Thank you for the consult. Viral Lane. Neuro-hospitalist Addendum: After getting the EEG and it showing epileptiform activity over the left fronto /centro/temporal region. I ordered 1 mg Ativan and gave loading dose of Keppra 1gm. I also started the patient on Keppra 500mg bid. I recommend the patient to be transferred for long-term EEG recording to rule out any seizure that is not seen on routine EEG. The plan we'll discussed with the primary team. Time with Patient: Greater than 30
--- NOTE | 2019-12-09 11:24 | ECHOF ---
Referral Reason:lv function MEASUREMENTS -------- HEIGHT: 167.6 cm WEIGHT: 63.0 kg BP: 110/64 RVIDd: 1.9 cm (< 3.3) IVSd: 1.0 cm (0.6 - 1.1) LVIDd: 4.3 cm (3.9 - 5.3) LVPWd: 0.9 cm (0.6 - 1.1) IVSs: 1.6 cm LVIDs: 2.4 cm LVPWs: 1.2 cm LAESV Index (A-L): 11.88 ml/m Ao Diam: 2.7 cm (2.0 - 3.7) AV Cusp: 2.0 cm (1.5 - 2.6) LA Diam: 2.3 cm (2.7 - 3.8) MV EXCURSION: 15.228 mm (> 18.000) MV EF SLOPE: 82 mm/s (70 - 150) EPSS: 0.3 cm MV E Naveen: 1.07 m/s MV DecT: 147 ms MV A Naveen: 1.00 m/s MV E/A Ratio: 1.07 RAP: 5.00 mmHg RVSP: 13.08 mmHg FINDINGS -------- Resting tachycardia (HR>100bpm). This was a technically good study. The left ventricular size is normal. Left ventricular wall thickness is normal. Overall left vent ricular systolic function is normal with, an EF between 60 - 65 %. The diastolic filling pattern is normal for the age of the patient 7.81. The right ventricle is normal in size. The left atrial size is normal. Normal LA size by volume 22+/-6 ml/m2. The right atrial size is normal. Interatrial and interventricular septum intact. The aortic valve is trileaflet and appears structurally normal. The mitral valve is normal. There is trace mitral regurgitation. The tricuspid valve appears structurally normal. Trace tricuspid regurgitation present. Right latrice tricular systolic pressure is normal at < 35 mmHg. The pulmonic valve was not well visualized. The aortic root size is normal. Normal inferior vena cava with normal inspiratory collapse consistent with estimated right atrial pre ssure of 5 mmHg. There is no pericardial effusion. CONCLUSIONS -------- 1. Resting tachycardia (HR>100bpm). 2. The left ventricular size is normal. 3. Left ventricular wall thickness is normal. 4. Overall left ventricular systolic function is normal with, an EF between 60 - 65 %. 5. The diastolic filling pattern is normal for the age of the patient 7.81 6. There is trace mitral regurgitation. 7. Trace tricuspid regurgitation present. [employer]PLICATION DEVELOPER: Mariana Finley RDCS
--- NOTE | 2019-12-09 11:36 | MR ---
EXAMINATION TYPE: MR brain wo/w con DATE OF EXAM: 12/09/2019 COMPARISON: Prior brain MRI 07/10/2017, CT brain 12/08/2019 HISTORY: Stroke: aphasia vs MS exacerbation TECHNIQUE: Multiplanar, multisequence images of the brain and brainstem is performed without and with IV contras t, utilizing 6.5 mL intravenous Gadavist . FINDINGS: Diffusion weighted images demonstrate no evidence of a recent infarct or other diffusion ab normality. There is no extra-axial fluid collection or significant interval change in extensive whit e matter signal abnormality. Confluent and scattered hyperintensity on T2 and inversion recovery sequ ences present within the pericallosal, periventricular, subcortical and juxtacortical white matter as on prior exam and including the corpus callosum, pericallosal T1 hypointensity lesions are again not ed. The proximal cervical cord also shows abnormal hyperintensity present. Right cerebral peduncle sh ows stable abnormal appearance. The ventricular system and cisternal spaces are normal in size and ap pearance. The brain volume is age appropriate. Midline structures demonstrate stable morphology, corpus callosum is thinned and there are low-lying cerebellar tonsils. The craniocervical junction appears within normal limits. Post contrast images demonstrate no abnormal enhancement. The dural venous sinuses appear patent. The visualized sinuses a re remarkable for an air-fluid level in the left maxillary sinus and inflammatory changes in the ethm oid air cells, and the globes are intact. IMPRESSION: No evidence of acute ischemia. Findings consistent with patient's history of multiple scl erosis as described.
[2019-12-09] MEDS ORDERED: LORazepam 2 MG/ML INJ IV STA (14:20)
[2019-12-09] MEDS ORDERED: levETIRAcetam IV 1,000 MG in SALINE 1 100ML.BAG IVPB SCH (14:30)
[2019-12-09] MEDS ORDERED: levETIRAcetam IV 1,000 MG in SALINE 1 100ML.BAG IVPB ONE (14:45)
--- NOTE | 2019-12-09 15:04 | EEG ---
ELECTROENCEPHALOGRAM REPORT DATE OF SERVICE: 12/09/2019 CLINICAL HISTORY: History this is a 44-year-old female with history of relapsing remitting multiple sclerosis, that presented to the ED because the patient was found unresponsive on 12/08/2019. This video EEG was obtained to evaluate procedure and epileptiform activity. RELEVANT MEDICATION: Not on centrally acting medication. EEG TYPE: A routine 21 channel EEG was performed with video using the 10-20 electrode placement system. DESCRIPTION: Wakefulness is only obtained during the study. During wakefulness, there is a posterior dominant rhythm of low to moderate voltage over the right hemisphere of 8-8.5 hertz that is poorly modulated, poorly sustained while on the left hemisphere with 6-7 hertz that is poorly modulated, poorly sustained. There is no stage II sleep architecture. There is frequent 1-2 hertz delta slowing over the left hemisphere, predominantly over the left frontal central temporal region. Interictal and ictal. The patient had occasional to frequent moderate to high voltage of 0.5-1.5 hertz delta activity of sharp and slow waves over the left frontal central temporal derivatives that came in runs lasting for 2-8 seconds without clear evolution to seizure. ACTIVATION PROCEDURE: Photic stimulation did not evoke a posterior driving response. Hyperventilation was not performed because of patient clinical history. EEG DIAGNOSIS: This is an abnormal routine EEG due to: 1. Runs of sharp and slow waves over the left frontal central temporal region. 2. Slowing over the left hemisphere, predominantly over the left frontal central temporal region. 3. Asymmetrical background, with slowing over the left hemisphere. CLINICAL INTERPRETATION: This is an abnormal routine EEG. The runs of sharp and slow waves over the left frontal central temporal region increases risk of focal seizure. The focal slowing over the left hemisphere is suggestive of focal cerebral dysfunction. There is no clear seizure during this EEG. Clinical correlation is recommended. RECOMMENDATION: Because of the interictal runs seen over the left [id number] region as well as patient still not back to her baseline, recommend long-term EEG. MMODL / IJN: [id number] / KASEY
[2019-12-09 16:26] LABS: Folate, Serum 14.8 ng/mL
[2019-12-09] MEDS: CALCIUM CARBONATE 500 MG CHEWABLE PO PRN ×2 (18:04→20:36)
[2019-12-09] MEDS ORDERED: levETIRAcetam 500 MG TAB PO SCH (21:00)
[2019-12-10 03:57] VITALS: BP 119/70; PULSE 94; RESP 18; TEMP 97.9
--- NOTE | 2019-12-11 22:01 | P.HPIM ---
History of Present Illness H&P Date: 12/09/19 Chief Complaint: Altered mental status Patient is a 44-year-old female with a known history of multiple sclerosis currently on medications came to ER by EMS due to altered mental status. Patient was last seen normal in the night and she was found to be normal over the phone approximately 10:30 AM. Patient's friend tried to call her at 3 PM. She did not respond and family did not try to call again at 4 PM and she did not respond. Patient's friend went to her place and found her on the couch minimally responsive. Currently patient is awake alert but could not provide any reliable history. Denied any complaints of chest pain or shortness of. No headache or dizziness or lightheadedness. Denied any focal weakness. No fever or recent illnesses. No recent travel history. In the ER patient blood pressure was 126/77, heart rate 106 and respiration 18 and temperature 98.1 pulse ox 97% on room air. CT head was done showed periventricular white matter changes could correlate to demyelinating disease or chronic small vessel ischemia. CT angiogram of the head and neck was normal. EKG showed normal sinus rhythm As per ED team patient is on steroids. Found to elevated WBC count likely due to steroids at 19.5 Laboratory data showed hemoglobin 12.9, platelets 257, BUN 19 and creatinine 0.55 Troponin 0 0.359, 0.951 and LDL is 128 B12, folate, TSH within normal limits. MRI of the brain was done which showed no evidence of ischemia EEG was done which showed there is abnormal routine EEG due to runs of sharp and slow waves over the left frontal central temporal region. Because of the inter ictal runs seen over the left frontocentral temporal region as well as the patient's condition of being found unresponsive and also patient is currently not at baseline mentation, recommended long-term EEG as per neurology. Review of Systems Constitutional: Patient denies any fever or chills . generalized weakness . no weight loss. Abdomen: Patient denied nausea vomiting and diarrhea and abdominal pain. Cardiovascular: Patient denies any chest pain or short of breath no palpitations. Respiratory: patient denied any cough is from production. No shortness of breath Neurologic: Patient denied any numbness or tingling headache. Complete review of systems could not be obtained from the patient. Past Medical History Past Medical History: Musculoskeletal Disorder Additional Past Medical History / Comment(s): MS. History of Any Multi-Drug Resistant Organisms: None Reported Past Surgical History: No Surgical Hx Reported Past Anesthesia/Blood Transfusion Reactions: No Reported Reaction Past Psychological History: No Psychological Hx Reported Smoking Status: Never smoker Past Alcohol Use History: None Reported Past Drug Use History: None Reported - Past Family History Father Family Medical History: Cancer Additional Family Medical History / Comment(s): Dad from colon CA Medications and Allergies Home Medications Medication Instructions Recorded Confirmed Type Baclofen [Lioresal] 10 mg PO TID 09/09/19 12/08/19 History Dimethyl Fumarate [Tecfidera] 240 mg PO BID@0800,199909/09/19 12/08/19 History Ampyra 10mg 10 mg PO BID@0800,199912/08/19 12/08/19 History Allergies Allergy/AdvReac Type Severity Reaction Status Date / Time No Known Allergies Allergy Verified 09/09/19 19:17 Physical Exam Vitals: Vital Signs Temp Pulse Pulse Resp BP BP Pulse Ox 12/09/19 09:51 99.4 F 97 18 110/66 96 12/09/19 08:12 99.2 F 94 18 110/64 97 12/09/19 04:00 99.6 F 100 18 109/61 97 12/09/19 00:00 98.7 F 97 18 117/64 96 12/08/19 20:22 97.8 F 103 H 18 117/62 97 12/08/19 19:30 99.5 F 90 17 110/78 97 12/08/19 19:15 89 19 116/78 98 12/08/19 19:00 87 19 115/72 99 12/08/19 18:54 84 12 115/82 98 12/08/19 18:45 92 17 119/91 98 12/08/19 18:30 88 18 88/65 98 12/08/19 18:15 89 17 102/79 98 12/08/19 18:00 86 18 132/90 98 12/08/19 17:45 98.3 F 88 17 126/87 96 12/08/19 17:30 98.1 F 94 16 126/85 98 12/08/19 17:20 98.1 F 96 16 126/85 94 L 12/08/19 17:14 106 H 18 126/77 97 Intake and Output 12/08/19 12/09/19 12/09/19 22:59 06:59 14:59 Intake Total 112.228 Output Total 650 Balance -650 112.228 Intake: Intake, IV Titration 112.228 Amount Heparin Sod,Pork in 0.45% 112.228 NaCl 25,000 unit In 0.45 % NaCl 1 250ml.bag @ 12 UNITS/KG/HR 7.457 mls/hr IV .Q24H [facility] Rx#: [id number] Output: Urine 650 Other: Voiding Method Indwelling Catheter Indwelling Catheter Weight 62.142 kg 63.5 kg PHYSICAL EXAMINATION: Patient is lying in the bed comfortably, no acute distress, awake alert and oriented x1.. HEENT: Normocephalic. Neck is supple. Pupils reactive. Nostrils clear. Oral cavity is moist. Ears reveal no drainage. Neck reveals no JVD, carotid bruits, or thyromegaly. CHEST EXAMINATION: Trachea is central. Symmetrical expansion. Lung wells clear to auscultation and percussion. CARDIAC: Normal S1, S2 with no gallops. No murmurs ABDOMEN: Soft. Bowel sounds normal. No organomegaly. No abdominal bruits. Extremities: reveal no edema. No clubbing or cyanosis Neurologically awake, alert, oriented x1-2 with well-coordinated movements. No focal deficits noted Skin: No rash or skin lesions. Psychiatric: Coperative. Musculoskeletal: No joint swelling or deformity. Normal range of motion. Results CBC & Chem 7: 12/08/19 17:26 12/08/19 17:26 Labs: Abnormal Lab Results - Last 24 Hours (Table) 12/08/19 12/08/19 12/08/19 Range/Units 17:18 17:26 17:26 WBC 19.5 H (3.8-10.6) k/uL Neutrophils # 17.7 H (1.3-7.7) k/uL APTT (22.0-30.0) sec BUN 19 H (7-17) mg/dL Glucose 156 H (74-99) mg/dL POC Glucose (mg/dL) 144 H (75-99) mg/dL Alkaline Phosphatase 37 L (38-126) U/L Troponin I (0.000-0.034) ng/mL LDL Cholesterol, Calc (0-99) mg/dL 12/08/19 12/09/19 12/09/19 Range/Units 17:26 01:08 10:07 WBC (3.8-10.6) k/uL Neutrophils # (1.3-7.7) k/uL APTT 45.1 H (22.0-30.0) sec BUN (7-17) mg/dL Glucose (74-99) mg/dL POC Glucose (mg/dL) (75-99) mg/dL Alkaline Phosphatase (38-126) U/L Troponin I 0.359 H* (0.000-0.034) ng/mL LDL Cholesterol, Calc 128 H (0-99) mg/dL Thrombosis Risk Factor Assmnt - DVT/VTE Prophylaxis DVT/VTE Prophylaxis: Pharmacologic Prophylaxis ordered - Choose All That Apply Any of the Below Risk Factors Present?: Yes Each Factor Represents 1 point: Age 41-60 years Thrombosis Risk Factor Assessment Total Risk Factor Score: 1 Thrombosis Risk Factor Assessment Level: Low Risk Assessment and Plan Assessment: Altered mental status possible seizure activity suspected. EEG was abnormal. MRI negative for acute CVA Leukocytosis likely due to recent steroids. Rule out infection. Multiple sclerosis Elevated troponin level DVT prophylaxis Plan: Patient will be continued on telemetry monitoring. Patient was started on Ampyra last week. Neurology recommends to discontinue medication at this time due to increased risk of seizures. Patient was seen by cardiology and treatment TTE and no surgical intervention recommended at this time. TTE showed normal ejection fraction and no significant valvular abnormalities noted. Patient is currently awake alert but could not provide any meaningful history. Time with Patient: Greater than 30
--- NOTE | 2019-12-11 22:05 | P.DS ---
Providers Date of admission: 12/08/19 18:53 Expected date of discharge: 12/09/19 Attending physician: Cale Coppola Consults: 12/08/19 18:34 Consult Physician Routine Consulting Provider: Trever Kothari Consult Reason/Comments: elevated troponin Do you want consulting provider notified?: Yes 12/08/19 18:54 Consult Physician Routine Consulting Provider: Domingo Castano Consult Reason/Comments: code stroke Do you want consulting provider notified?: Yes 12/09/19 09:04 Consult Physician Stat Consulting Provider: Domingo Castano Consult Reason/Comments: MS, AMS, STROKE Do you want consulting provider notified?: Yes Primary care physician: Physician Nonstaff Hospital Course: Discharge diagnosis Altered mental status possible seizure activity suspected. EEG was abnormal. M RI negative for acute CVA Leukocytosis likely due to recent steroids. Rule out infection. Multiple sclerosis Elevated troponin level DVT prophylaxis Hospital course Patient is a 44-year-old female with a known history of multiple sclerosis currently on medications came to ER by EMS due to altered mental status. Patient was last seen normal in the night and she was found to be normal over the phone approximately 10:30 AM. Patient's friend tried to call her at 3 PM. She did not respond and family did not try to call again at 4 PM and she did not respond. Patient's friend went to her place and found her on the couch minimally responsive. Currently patient is awake alert but could not provide any reliable history. Denied any complaints of chest pain or shortness of. No headache or dizziness or lightheadedness. Denied any focal weakness. No fever or recent illnesses. No recent travel history. In the ER patient blood pressure was 126/77, heart rate 106 and respiration 18 and temperature 98.1 pulse ox 97% on room air. CT head was done showed periventricular white matter changes could correlate to demyelinating disease or chronic small vessel ischemia. CT angiogram of the head and neck was normal. EKG showed normal sinus rhythm As per ED team patient is on steroids. Found to elevated WBC count likely due to steroids at 19.5 Laboratory data showed hemoglobin 12.9, platelets 257, BUN 19 and creatinine 0.55 Troponin 0 0.359, 0.951 and LDL is 128 B12, folate, TSH within normal limits. MRI of the brain was done which showed no evidence of ischemia EEG was done which showed there is abnormal routine EEG due to runs of sharp and slow waves over the left frontal central temporal region. Because of the inter ictal runs seen over the left frontocentral temporal region as well as the patient's condition of being found unresponsive and also patient is currently not at baseline mentation, recommended long-term EEG as per neurology. Patient was continued on telemetry monitoring. Patient was started on Ampyra last week. Neurology recommends to discontinue medication at this time due to increased risk of seizures. Patient was seen by cardiology and treatment TTE and no surgical intervention recommended at this time. TTE showed normal ejection fraction and no significant valvular abnormalities noted. Patient is currently awake alert but could not provide any meaningful history. Due to abnormal EEG which showed sharp slow waves over the left frontal central temporal region. Possibility of seizure activity and recommended long-term continuous seizure monitoring. Patient is to be transferred to tertiary care facility for continuous seizure monitoring. [facility] and personally given signout to admitting physician. Discharge physical examination was done and vitals reviewed. Time taken greater than 35 minutes Patient Condition at Discharge: Fair Plan - Discharge Summary Discharge Rx Participant: No New Discharge Prescriptions: No Action Baclofen [Lioresal] 10 mg PO TID Dimethyl Fumarate [Tecfidera] 240 mg PO BID@ Ampyra 10mg 10 mg PO BID@ Discharge Medication List Baclofen [Lioresal] 10 mg PO TID 09/09/19 [History] Dimethyl Fumarate [Tecfidera] 240 mg PO BID@0800,199909/09/19 [History] Ampyra 10mg 10 mg PO BID@0800,199912/08/19 [History] Follow up Appointment(s)/Referral(s): Nonstaff,Physician [Primary Care Provider] - 1-2 days Discharge Disposition: OTHER INSTITUTION NOT DEFINED
== END 2019-12-10 08:09 | disposition short-term general hospital (02) | DRG 101 ==
LOC: EC 17:12 → 3SCARD 18:53
PROVIDERS: ADMIT Hospitalist; ATTEND Hospitalist
DX: R56.9 Unspecified convulsions (principal); R47.01 Aphasia; R41.4 Neurologic neglect syndrome; G35 Multiple sclerosis; D72.829 Elevated white blood cell count, unspecified; R79.89 Other specified abnormal findings of blood chemistry; T38.0X5A Adverse effect of glucocorticoids and synthetic analogues, initial encounter; Z79.899 Other long term (current) drug therapy; Z80.0 Family history of malignant neoplasm of digestive organs; Z87.39 Personal history of other diseases of the musculoskeletal system and connective tissue
CPT/HCPCS: 36415; 70450; 70496; 70498; 70553; 71045; 80053; 80061; 80320; 80329; 81003; 81025; 82140; 82550; 82607; 82746; 82747; 83520; 83930; 84443; 84484; 85025; 85610; 85730; 93005; 93306; 95816; 96365; 96376; 99291

== ENCOUNTER → 2020-01-27 | Outpatient (CLI) | payer BC ==
[2020-01-27 14:25] LABS: Basophils # (A) 0.1 k/uL (0-0.2); Basophils % (A) 1 %; Eosinophils % (A) 0 %; HCT 44.9 % (34.0-46.0); HGB 14.5 gm/dL (11.4-16.0); Lymphocytes # (A) 1.6 k/uL (1.0-4.8); Lymphocytes % (A) 16 %; MCH 28.2 pg (25.0-35.0); MCHC 32.3 g/dL (31.0-37.0); MCV 87.1 fL (80.0-100.0); Mean Platelet Volume 8.2; Monocytes # (A) 0.3 k/uL (0-1.0); Monocytes % (A) 4 %; Neutrophils # (A) 7.6 k/uL (1.3-7.7); Neutrophils % (A) 79 %; Platelet Count 262 k/uL (150-450); RBC 5.16 m/uL (3.80-5.40); RDW 13.8 % (11.5-15.5); WBC 9.7 k/uL (3.8-10.6)
[2020-01-27 20:15] LABS: African American GFR (CKD) 123.9 (60.0-200.0); Albumin 4.5 g/dL (3.80-4.90); Albumin/Globulin Ratio 2.37 (1.60-3.17); Anion Gap 9.5 mmol/L (4.00-12.00); BUN/Creat Ratio 15.71 Ratio (12.00-20.00); Calcium 9.5 mg/dL (8.7-10.3); Carbon Dioxide 26.5 mmol/L (21.6-31.8); Globulin 1.9 g/dL (1.6-3.3); Non-African American GFR(CKD) 106.9 (60.0-200.0); Potassium 4.2 mmol/L (3.5-5.5); Total Bilirubin 0.5 mg/dL (0.2-1.2); Total Protein 6.4 g/dL (6.2-8.2)
[2020-01-27 21:08] LABS: Hepatitis B Core IgM Non-Reactive (Non-Reactive); Hepatitis B Surface AB- Quant 3.5 mIU/mL; Hepatitis B Surface Antibody Non-Reactive (Non-Reactive); Hepatitis B Surface Antigen Non-Reactive (Non-Reactive)
== END | disposition home or self-care (01) ==
LOC: LABWHC1 13:21
PROVIDERS: ATTEND Nurse Practitioner Acute Care
DX: Z51.81 Encounter for therapeutic drug level monitoring (principal); E55.9 Vitamin D deficiency, unspecified; G35 Multiple sclerosis; R53.83 Other fatigue
CPT/HCPCS: 36415; 80053; 82306; 82607; 84207; 85025; 86704; 86705; 86706; 87340